=== PATIENT | male | born 1940 | race Caucasian/White ===

== ENCOUNTER 2019-01-24 19:01 | Inpatient (IN) | payer OTHER, MEDICARE ==
[2019-01-24] MEDS ORDERED: NORMAL SALINE 1000 ML 1,000 ML IV ONE (21:22)
--- NOTE | 2019-01-24 21:24 | ER Document Report ---
ED General - General Chief Complaint: Dizziness Stated Complaint: DIZZINESS Time Seen by Provider: 01/24/19 20:36 Notes: 78-year-old male to emergency department for evaluation of altered mental status. Patient has baseline dementia. Multiple other medical problems. states that seems more confused today. Looks like he was having a seizure and shaking earlier today. No trauma. - HPI Onset: Just prior to arrival Severity: Moderate Pain Level: Denies Associated symptoms: Fever - Related Data Allergies/Adverse Reactions: No Known Allergies Allergy (Unverified 01/24/19 19:38) Past Medical History - General Information source: Relative Cannot obtain history due to: Dementia - Social History Smoking Status: Never Smoker Chew tobacco use (# tins/day): Yes Frequency of alcohol use: None Drug Abuse: None Lives with: Spouse/Significant other Family History: Reviewed & Not Pertinent - Medical History Notes: Dementia, diabetes Review of Systems - Review of Systems -: Yes ROS unobtainable due to patient's medical condition Physical Exam - Vital signs Vitals: Resp Pulse Ox 21 H 94 01/24/19 19:32 01/24/19 19:32 Interpretation: Febrile - General General appearance: Appears well, Alert - HEENT Head: Normocephalic, Atraumatic Eyes: Normal Pupils: PERRL Mucous membranes: Dry - Respiratory Respiratory status: No respiratory distress Chest status: Nontender Breath sounds: Normal Chest palpation: Normal - Cardiovascular Rhythm: Regular Heart sounds: Normal auscultation Murmur: No - Abdominal Inspection: Normal Distension: No distension Bowel sounds: Normal Tenderness: Nontender Organomegaly: No organomegaly - Back Back: Normal, Nontender - Extremities General upper extremity: Normal inspection, Nontender, Normal color, Normal ROM, Normal temperature General lower extremity: Normal inspection, Nontender, Normal color, Normal ROM, Normal temperature, Other - Right lower extremity demonstrates some anasarca with some chronic venous stasis. Right lower extremity with pitting edema and left lower extremity with pitting edema.. No: Alexei's sign - Neurological Neuro grossly intact: Yes Cognition: Confused, Short term memory loss Plessis Coma Scale Eye Opening: Spontaneous Lidia Coma Scale Verbal: Confused Lidia Coma Scale Motor: Obeys Commands Plessis Coma Scale Total: 14 Speech: Normal Motor strength normal: LUE, RUE, LLE, RLE Sensory: Normal - Psychological Associated symptoms: Normal affect, Normal mood - Skin Skin Temperature: Warm Skin Moisture: Dry Skin Color: Normal Course - Re-evaluation Re-evalutation: 01/25/19 02:29 Patient with a fever. states that he may also have some abdominal pain? We will do basic workup at this time. If no significant pathology is seen may actually entertain doing an LP at this time. 01/25/19 04:32 LP performed. Antibiotics started. Opening pressure was high. Hospitalist has been consulted. Admitting at this time. - Vital Signs Vital signs: Temp Pulse Resp BP Pulse Ox 99.9 F 82 26 H 116/63 91 L 01/25/19 03:02 01/24/19 19:37 01/25/19 00:31 01/25/19 00:31 01/25/19 00:31 - Laboratory Result Diagrams: 01/24/19 21:40 01/24/19 21:40 Laboratory results interpreted by me: 01/24/19 01/24/19 01/24/19 21:40 21:40 21:40 RBC 3.32 L Hgb 11.6 L Hct 33.5 L MCV 101 H MCH 34.9 H RDW 16.3 H Plt Count 139 L Seg Neutrophils % 84.1 H Lymphocytes % 8.0 L Absolute Neutrophils 8.3 H APTT Sodium 136.6 L Potassium 5.8 H BUN 37 H Glucose 146 H Direct Bilirubin 0.6 H Alkaline Phosphatase 137 H TSH 7.86 H Urine Protein Urine Ketones Urine Urobilinogen 01/24/19 01/25/19 23:24 02:35 RBC Hgb Hct MCV MCH RDW Plt Count Seg Neutrophils % Lymphocytes % Absolute Neutrophils APTT 36.8 H Sodium Potassium BUN Glucose Direct Bilirubin Alkaline Phosphatase TSH Urine Protein 30 H Urine Ketones TRACE H Urine Urobilinogen 2.0 H - EKG Interpretation by Me [place]/QRS: LBBB Procedures - Lumbar Puncture Lumbar puncture Time completed: 04:31 Consent obtained: Yes Lumbar puncture pre-procedure: Sterile PPE donned, Betadine prep applied, Chloraprep applied, Sterile drapes applied Patient position: Sitting Needle size: 22 Lumbar puncture location: l3-l4 Anesthetic type: 1% Lidocaine mL's of anesthetic: 3 Amount/type of drainage: clear Number of attempts: 2 Complications: No Notes: 01/25/19 04:32 Opening pressure 47 Critical Care Note - Critical Care Note Total time excluding time spent on procedures (mins): 45 Comments: Fever, altered mental status, hypotension Discharge - Discharge Clinical Impression: Hyperkalemia, Anasarca Altered mental status, unspecified Qualifiers: Altered mental status type: unspecified Qualified Code(s): R41.82 - Altered mental status, unspecified Condition: Fair Disposition: ADMITTED INPATIENT Admitting Provider: [place] [facility] Unit Admitted: [facility]
[2019-01-24] MEDS ORDERED: ACETAMINOPHEN 325 MG TABLET PO ONE (21:30)
[2019-01-24 21:55] LABS: ABSOLUTE LYMPHOCYTES (AUTO) 0.8 10^3/uL (0.5-4.7); ABSOLUTE MONOCYTES (AUTO) 0.7 10^3/uL (0.1-1.4); ABSOLUTE NEUT (AUTO) 8.3 10^3/uL (1.7-8.2); BASOPHILS % (AUTO) 0.3 % (0-2); EOSINOPHILS % (AUTO) 0.4 % (0-6); HEMATOCRIT 33.5 % (37.9-51.0); HEMOGLOBIN 11.6 g/dL (13.5-17.0); MEAN CORPUSCULAR HEMOGLOBIN 34.9 pg (27.0-33.4); MEAN CORPUSCULAR HGB CONC 34.5 g/dL (32.0-36.0); MEAN CORPUSCULAR VOLUME 101 fl (80-97); MONOCYTES % (AUTO) 7.2 % (3-13); PLATELET COUNT 139 10^3/uL (150-450); RED BLOOD COUNT 3.32 10^6/uL (4.35-5.55); RED CELL DISTRIBUTION WIDTH 16.3 % (11.5-14.0); SEGMENTED NEUTROPHILS % (AUTO) 84.1 % (42-78); TOTAL CELLS COUNTED % (AUTO) 100 %; WHITE BLOOD COUNT 9.8 10^3/uL (4.0-10.5)
--- NOTE | 2019-01-24 22:01 | RADIOLOGY REPORT (SQ) ---
EXAM DESCRIPTION: XR CHEST 1 VIEW COMPLETED DATE/TME: 01/24/2019 21:21 CLINICAL HISTORY: 78 years, Male, sob Findings: The heart is mildly enlarged. Status post median sternotomy. Lungs are clear. No pleural effusion. IMPRESSION: No acute disease.
[2019-01-24 22:16] LABS: ALANINE AMINOTRANSFERASE 22 U/L (21-72); ALBUMIN 4.7 g/dL (3.5-5.0); ALKALINE PHOSPHATASE 137 U/L (38-126); ANION GAP 13 (5-19); ASPARTATE AMINO TRANSFERASE 40 U/L (17-59); BILIRUBIN,DIRECT 0.6 mg/dL (0.0-0.4); BILIRUBIN,TOTAL 1.3 mg/dL (0.2-1.3); BLOOD UREA NITROGEN 37 mg/dL (7-20); CALCIUM 9.9 mg/dL (8.4-10.2); CARBON DIOXIDE 25 mmol/L (22-30); CHLORIDE 99 mmol/L (98-107); GLUCOSE 146 mg/dL (75-110); POTASSIUM 5.8 mmol/L (3.6-5.0); SODIUM 136.6 mmol/L (137-145); TOTAL PROTEIN 8.1 g/dL (6.3-8.2)
[2019-01-24 23:35] LABS: APPEARANCE,URINE SLIGHTLY-CLOUDY; BILIRUBIN,URINE NEGATIVE (NEGATIVE); COLOR,URINE YELLOW; GLUCOSE, URINE NEGATIVE (NEGATIVE); KETONES,URINE TRACE mg/dL (NEGATIVE); LEUKOCYTE ESTERASE,URINE NEGATIVE (NEGATIVE); NITRITE,URINE NEGATIVE (NEGATIVE); PROTEIN,URINE 30 mg/dL (NEGATIVE); URINE SPECIFIC GRAVITY 1.017
[2019-01-24 23:56] LABS: A TYPE INFLUENZA AG NEGATIVE (NEGATIVE); B INFLUENZA AG NEGATIVE (NEGATIVE)
--- NOTE | 2019-01-25 02:12 | RADIOLOGY REPORT (SQ) ---
CLINICAL HISTORY: altered COMPARISON: None. TECHNIQUE: CT HEAD WITHOUT IV CONTRAST on 01/25/2019 12:26 AM CDT This exam was performed according to our departmental dose-optimization program, which includes automated exposure control, adjustment of the mA and/or kV according to patient size and/or use of iterative reconstruction technique. FINDINGS: There is no acute hemorrhage, mass effect or midline shift. Jarrett-white differentiation is preserved. There is no hydrocephalus. There is no significant volume loss for age. There are mild patchy hypodensities within the periventricular and subcortical white matter, consistent with microangiopathic ischemic changes. The calvarium is intact. Orbits and globes are unremarkable. The paranasal sinuses are clear. Mastoid air cells are clear. IMPRESSION: No acute intracranial findings.
--- NOTE | 2019-01-25 02:18 | RADIOLOGY REPORT (SQ) ---
CLINICAL HISTORY: fever, abd pain COMPARISON: None. TECHNIQUE: CT ABDOMEN PELVIS WITH IV CONTRAST on 01/25/2019 12:26 AM CDT This exam was performed according to our departmental dose-optimization program, which includes automated exposure control, adjustment of the mA and/or kV according to patient size and/or use of iterative reconstruction technique. FINDINGS: There is a trace left and a moderate right pleural effusion. Abdomen: There is mild perihepatic ascites. There is no biliary dilatation. Gallbladder is decompressed containing several gallstones. The pancreas and spleen are normal in appearance. The adrenal glands and kidneys are unremarkable. Abdominal aorta is normal in course and caliber without aneurysm. There is no free air. There is no retroperitoneal adenopathy. Pelvis: There is no bowel obstruction. Urinary bladder is unremarkable. There is small amount of free pelvic fluid. Appendix is normal. There is minimal body wall anasarca. Skeleton: There are no acute osseous findings. No suspicious bony lesions. IMPRESSION: Fluid overloaded state with pleural effusions, mild ascites as well as mild body wall anasarca.
[2019-01-25] MEDS ORDERED: CEFTRIAXONE INJ 1000 MG VIAL IV ONE (02:27)
[2019-01-25 02:52] LABS: INTERNATIONAL RATION (INR) 1.13; PROTHROMBIN TIME 15.1 SEC (11.4-15.4)
[2019-01-25 02:53] LABS: PARTIAL THROMBOPLASTIN TIME 36.8 SEC (23.5-35.8)
[2019-01-25] MEDS ORDERED: MAG HYDROX/AL HYDROX/SIMETH SUSP 30 ML UDCUP PO PRN (03:04)
[2019-01-25] MEDS ORDERED: MAGNESIUM HYDROXIDE SUSP 30 ML UDCUP PO PRN (03:04)
[2019-01-25] MEDS ORDERED: LACTULOSE SYRUP 20 GM/30 ML UDCUP PO ONE (03:04)
[2019-01-25] MEDS ORDERED: IPRATROPIUM/ALBUTEROL 0.5-2.5 MG/3 ML AMPUL NEB PRN (03:04)
[2019-01-25] MEDS ORDERED: HYDRALAZINE HCL INJ/PF 20 MG/1 ML SDV IV PRN (03:04)
[2019-01-25] MEDS ORDERED: ACETAMINOPHEN 325 MG TABLET PO PRN (03:04)
[2019-01-25] MEDS ORDERED: DEXTROSE 50%-WATER 25 GM/50 ML DISP.SYRIN IV PRN ×2 (03:04)
[2019-01-25] MEDS ORDERED: GLUCAGON,HUMAN RECOMB 1 MG INJ IM PRN (03:04)
[2019-01-25] MEDS ORDERED: DEXTROSE 40% GEL 15 GM TUBE PO PRN ×2 (03:04)
[2019-01-25 04:05] LABS: FREE T4 (FREE THYROXINE) 1.42 ng/dL (0.78-2.19)
[2019-01-25 04:18] LABS: THYROID STIMULATING HORMONE 7.86 uIU/mL (0.47-4.68)
[2019-01-25] MEDS ORDERED: VANCOMYCIN HCL 1,500 MG in DEXTROSE 5%-WATER 250 ML IV ONE (04:33)
[2019-01-25] MEDS ORDERED: NORMAL SALINE 1000 ML 1,000 ML IV ONE (04:34)
[2019-01-25] MEDS ORDERED: VANCOMYCIN HCL INJ 1000 MG VIAL IV PRN (04:36)
[2019-01-25] MEDS ORDERED: THIAMINE HCL INJ 200 MG/2 ML VIAL IV PRN (04:40)
[2019-01-25] MEDS ORDERED: FOLIC ACID INJ 5 MG/1 ML 10 ML VIAL IV PRN (04:41)
[2019-01-25] MEDS ORDERED: THIAMINE HCL 100 MG, FOLIC ACID 1 MG in NORMAL SALINE 250 ML IV ONE (04:45)
[2019-01-25] MEDS ORDERED: VANCOMYCIN HCL 0 MG in DEXTROSE 5%-WATER 250 ML IV NR (04:45)
[2019-01-25] MEDS ORDERED: NOREPINEPHRINE BITARTRATE INJ/PF 4 MG/4 ML SDV IV ONE (05:06)
[2019-01-25] MEDS: DEXTROSE 5%-WATER 250 ML with NOREPINEPHRINE BITARTRATE 4 MG IV PRN ×4 (05:12→10:28)
[2019-01-25 05:27] LABS: COLOR ALL TUBES COLORLESS; CSF TUBE NUMBER 1
[2019-01-25 05:28] LABS: APPEARANCE ALL TUBES CLEAR; COLOR ALL TUBES COLORLESS; CSF TOTAL VOLUME 10.5 CC; CSF TUBE NUMBER 4; RED BLOOD CELL,CSF 0 /uL (0-10); VOLUME TUBE 1 2.5 CC; WHITE BLOOD CELL,CSF 3 /uL (0-5)
[2019-01-25 05:29] LABS: GLUCOSE,CSF 77 mg/dL (40-70); PROTEIN,CSF 78 mg/dL (12-60); WHITE BLOOD CELL,CSF 1 /uL (0-5)
[2019-01-25] MEDS ORDERED: ACETAMINOPHEN 650 MG SUPP.RECT PR PRN (05:35)
[2019-01-25] MEDS ORDERED: DEXAMETHASONE SOD PHOS INJ 10 MG/1 ML VIAL ONE (05:40)
[2019-01-25] MEDS ORDERED: ACETAMINOPHEN 650 MG SUPP.RECT PR ONE (05:40)
[2019-01-25] MEDS: DEXAMETHASONE SOD PHOS INJ 10 MG/1 ML VIAL IV SCH ×3 (05:44→21:09)
[2019-01-25 06:01] LABS: ABSOLUTE RETICS # 0.052 10^6/uL (0.028-0.122); HEMATOCRIT 34.4 % (37.9-51.0); HEMOGLOBIN 11.8 g/dL (13.5-17.0); MEAN CORPUSCULAR HEMOGLOBIN 34.5 pg (27.0-33.4); MEAN CORPUSCULAR HGB CONC 34.1 g/dL (32.0-36.0); MEAN CORPUSCULAR VOLUME 101 fl (80-97); PLATELET COUNT 129 10^3/uL (150-450); RED BLOOD COUNT 3.41 10^6/uL (4.35-5.55); RED CELL DISTRIBUTION WIDTH 16.2 % (11.5-14.0); RETICULOCYTE COUNT (AUTO) 1.51 % (0.66-2.85); WHITE BLOOD COUNT 16.9 10^3/uL (4.0-10.5)
[2019-01-25 06:17] LABS: IRON(TIBC) 166.1 ug/dL (49-181)
[2019-01-25 06:19] LABS: ALANINE AMINOTRANSFERASE 19 U/L (21-72); ALBUMIN 4.1 g/dL (3.5-5.0); ALKALINE PHOSPHATASE 132 U/L (38-126); ANION GAP 14 (5-19); ASPARTATE AMINO TRANSFERASE 35 U/L (17-59); BILIRUBIN,DIRECT 0.5 mg/dL (0.0-0.4); BILIRUBIN,TOTAL 1.3 mg/dL (0.2-1.3); BLOOD UREA NITROGEN 39 mg/dL (7-20); CALCIUM 9.3 mg/dL (8.4-10.2); CARBON DIOXIDE 22 mmol/L (22-30); CHLORIDE 102 mmol/L (98-107); GLUCOSE 109 mg/dL (75-110); SODIUM 137.5 mmol/L (137-145); TOTAL PROTEIN 7.4 g/dL (6.3-8.2)
--- NOTE | 2019-01-25 06:19 | PDOC H&P ---
History of Present Illness Admission Date/PCP: 01/25/19 03:34 [facility] Patient complains of: Altered mental status History of Present Illness: BELINDA BRITO is a 78 year old male with an extensive past medical history of COPD, congestive heart failure, coronary artery disease status post remote bypass grafting, hypertension and advanced dementia who requires assistance with feeding at baseline. He presents with his after the abrupt onset of vomiting of gastric contents x1, fever with altered mental status from baseline. Patient has chronic cellulitis of the right leg without antibiotics there are no new medications initiated patient is otherwise felt well in the emergency room is found to have septic shock with hypotension, fever, hyperkalemia chest x-ray revealing bilateral pleural effusion without infiltrate, LP reveals increased opening pressure, right leg is hot and erythemic with several open excoriations without exudate. He started on vancomycin, Rocephin and referred to the hospitalist for admission. denies recent rash or tick bite Patient verifies CODE STATUS is full code Past Medical History Cardiac Medical History: Reports: Congestive Heart Failure, Coronary Artery Disease Pulmonary Medical History: Reports: Bronchitis, Chronic Obstructive Pulmonary Disease (COPD) Neurological Medical History: Reports: Other - Dementia Endocrine Medical History: Reports: None Renal/ Medical History: Reports: None Malignancy Medical History: Reports: None Past Surgical History Past Surgical History: Reports: Coronary Artery Bypass Graft, Valve Replacement Social History Information Source: Patient Lives with: Spouse/Significant other Smoking Status: Never Smoker Frequency of Alcohol Use: Occasional Drugs: None, Other - Chewing tobacco - Advance Directive Resuscitation Status: Full Code Family History Family History: DM, Hypertension Parental Family History Reviewed: Yes Children Family History Reviewed: Yes Sibling(s) Family History Reviewed.: Yes Medication/Allergy Allergies/Adverse Reactions: No Known Allergies Allergy (Unverified 01/24/19 19:38) Physical Exam Vital Signs: Temp Pulse Resp BP Pulse Ox 101.2 F H 82 20 76/36 L 95 01/25/19 03:48 01/24/19 19:37 01/25/19 05:48 01/25/19 05:48 01/25/19 05:48 Intake & Output 01/23/19 01/24/19 01/25/19 11:59 11:59 11:59 Intake Total 1999 Balance 1999 Weight 95.254 kg General appearance: PRESENT: disheveled, severe distress, thin, well-developed. ABSENT: cooperative Head exam: PRESENT: atraumatic, normocephalic Eye exam: PRESENT: conjunctiva pink, EOMI, PERRLA. ABSENT: scleral icterus Ear exam: PRESENT: normal external ear exam Mouth exam: PRESENT: dry mucosa, tongue midline. ABSENT: moist Neck exam: ABSENT: carotid bruit, JVD, lymphadenopathy, tenderness, thyromegaly Respiratory exam: PRESENT: crackles, decreased breath sounds, tachypnea. ABSENT: rales, rhonchi, wheezes Cardiovascular exam: PRESENT: RRR, +S1, +S2, systolic murmur. ABSENT: diastolic murmur, rubs Pulses: PRESENT: normal dorsalis pedis pul Vascular exam: PRESENT: normal capillary refill GI/Abdominal exam: PRESENT: normal bowel sounds, soft. ABSENT: distended, guarding, mass, organolmegaly, rebound, tenderness Rectal exam: PRESENT: deferred Extremities exam: PRESENT: tenderness - Hot right lower leg circumferentially erythemic with several open areas without exudate, +1 edema Neurological exam: PRESENT: altered, CN II-XII grossly intact. ABSENT: oriented to person, oriented to place, oriented to time, oriented to situation Psychiatric exam: PRESENT: unusual affect Skin exam: PRESENT: erythema, other - Hot right lower leg circumferentially erythemic with several open areas without exudate. ABSENT: cyanosis, intact, jaundice Results Laboratory Results: 01/24/19 01/24/19 01/24/19 21:40 21:40 21:40 WBC 9.8 RBC 3.32 L Hgb 11.6 L Hct 33.5 L MCV 101 H MCH 34.9 H MCHC 34.5 RDW 16.3 H Plt Count 139 L Seg Neutrophils % 84.1 H Lymphocytes % 8.0 L Monocytes % 7.2 Eosinophils % 0.4 Basophils % 0.3 Absolute Neutrophils 8.3 H Absolute Lymphocytes 0.8 Absolute Monocytes 0.7 Absolute Eosinophils 0.0 Absolute Basophils 0.0 Retic Count (auto) Absolute Retic Sodium 136.6 L Potassium 5.8 H Chloride 99 Carbon Dioxide 25 Anion Gap 13 BUN 37 H Creatinine 1.09 Est GFR ( Amer) > 60 Est GFR (Non-Af Amer) > 60 Glucose 146 H Lactic Acid 1.3 Calcium 9.9 Total Bilirubin 1.3 AST 40 ALT 22 Alkaline Phosphatase 137 H Total Protein 8.1 Albumin 4.7 Lipase TSH Free T4 Urine Color Urine Appearance Urine pH Ur Specific [place] Urine Protein Urine Glucose (UA) Urine Ketones Urine Blood Urine Nitrite Ur Leukocyte Esterase Urine WBC (Auto) Urine RBC (Auto) Fluid Tube Number CSF Volume CSF Appearance CSF Color CSF WBC CSF RBC CSF Glucose CSF Total Protein 01/24/19 01/24/19 01/24/19 21:40 21:40 23:24 WBC RBC Hgb Hct MCV MCH MCHC RDW Plt Count Seg Neutrophils % Lymphocytes % Monocytes % Eosinophils % Basophils % Absolute Neutrophils Absolute Lymphocytes Absolute Monocytes Absolute Eosinophils Absolute Basophils Retic Count (auto) Absolute Retic Sodium Potassium Chloride Carbon Dioxide Anion Gap BUN Creatinine Est GFR ( Amer) Est GFR (Non-Af Amer) Glucose Lactic Acid Calcium Total Bilirubin AST ALT Alkaline Phosphatase Total Protein Albumin Lipase 110.5 TSH 7.86 H Free T4 1.42 Urine Color YELLOW Urine Appearance SLIGHTLY-CLOUDY Urine pH 6.0 Ur Specific [place] 1.017 Urine Protein 30 H Urine Glucose (UA) NEGATIVE Urine Ketones TRACE H Urine Blood NEGATIVE Urine Nitrite NEGATIVE Ur Leukocyte Esterase NEGATIVE Urine WBC (Auto) 1 Urine RBC (Auto) 0 Fluid Tube Number CSF Volume CSF Appearance CSF Color CSF WBC CSF RBC CSF Glucose CSF Total Protein 01/25/19 01/25/19 01/25/19 04:25 04:25 04:25 WBC RBC Hgb Hct MCV MCH MCHC RDW Plt Count Seg Neutrophils % Lymphocytes % Monocytes % Eosinophils % Basophils % Absolute Neutrophils Absolute Lymphocytes Absolute Monocytes Absolute Eosinophils Absolute Basophils Retic Count (auto) Absolute Retic Sodium Potassium Chloride Carbon Dioxide Anion Gap BUN Creatinine Est GFR ( Amer) Est GFR (Non-Af Amer) Glucose Lactic Acid Calcium Total Bilirubin AST ALT Alkaline Phosphatase Total Protein Albumin Lipase TSH Free T4 Urine Color Urine Appearance Urine pH Ur Specific [place] Urine Protein Urine Glucose (UA) Urine Ketones Urine Blood Urine Nitrite Ur Leukocyte Esterase Urine WBC (Auto) Urine RBC (Auto) Fluid Tube Number 1 4 CSF Volume 10.5 10.5 CSF Appearance CLEAR CLEAR CSF Color COLORLESS COLORLESS CSF WBC 3 1 CSF RBC 0 0 CSF Glucose 77 H CSF Total Protein 78 H 01/25/19 01/25/19 05:45 05:45 WBC RBC Hgb Hct MCV MCH MCHC RDW Plt Count Seg Neutrophils % Not Reportable Lymphocytes % Not Reportable Monocytes % Not Reportable Eosinophils % Not Reportable Basophils % Not Reportable Absolute Neutrophils Not Reportable Absolute Lymphocytes Not Reportable Absolute Monocytes Not Reportable Absolute Eosinophils Not Reportable Absolute Basophils Not Reportable Retic Count (auto) Cancelled Absolute Retic Cancelled Sodium Potassium Chloride Carbon Dioxide Anion Gap BUN Creatinine Est GFR ( Amer) Est GFR (Non-Af Amer) Glucose Lactic Acid Calcium Total Bilirubin AST ALT Alkaline Phosphatase Total Protein Albumin Lipase TSH Free T4 Urine Color Urine Appearance Urine pH Ur Specific [place] Urine Protein Urine Glucose (UA) Urine Ketones Urine Blood Urine Nitrite Ur Leukocyte Esterase Urine WBC (Auto) Urine RBC (Auto) Fluid Tube Number CSF Volume CSF Appearance CSF Color CSF WBC CSF RBC CSF Glucose CSF Total Protein 01/24/19 01/24/19 01/24/19 21:40 21:40 21:40 Creatine Kinase 60 CK-MB (CK-2) 0.60 Troponin I < 0.012 Impressions: Chest X-Ray 01/24/19 21:21 IMPRESSION: No acute disease. Abdomen/Pelvis CT 01/25/19 00:26 IMPRESSION: Fluid overloaded state with pleural effusions, mild ascites as well as mild body wall anasarca. Head CT 01/25/19 00:26 IMPRESSION: No acute intracranial findings. Assessment & Plan - Diagnosis (1) Meningitis Is this a current diagnosis for this admission?: Yes Plan: Possible meningitis with increased opening pressure, dexamethasone, vancomycin, Rocephin initiated, follow-up CSF studies and blood culture (2) Cellulitis of right leg Is this a current diagnosis for this admission?: Yes Plan: Obvious right lower leg cellulitis without exudate, likely strep. Rocephin and vancomycin initiated, follow-up blood culture and CBC (3) Pleural effusion Is this a current diagnosis for this admission?: Yes Plan: Unclear if infectious source, no infiltrate, BiPAP support as needed, consider repeat chest x-ray (4) Severe sepsis Is this a current diagnosis for this admission?: Yes Plan: Likely secondary to #1 or 2. IV fluid challenge, Levophed as needed (5) Altered mental status, unspecified Qualifiers: Altered mental status type: unspecified Qualified Code(s): R41.82 - Altered mental status, unspecified Is this a current diagnosis for this admission?: Yes Plan: Delirium of acute illness complicated by baseline dementia requiring assistance with ADLs (6) Hyperkalemia Is this a current diagnosis for this admission?: Yes Plan: Lactulose, follow-up chemistry, no peaked T waves - Time Time Spent: 50 to 70 Minutes - Inpatient Certification Medical Necessity: Need Close Monitoring Due to Risk of Patient Decompensation
[2019-01-25 06:22] LABS: ABSOLUTE LYMPHOCYTES# (MANUAL) 0.3 10^3/uL (0.5-4.7); ABSOLUTE MONOCYTES # (MANUAL) 1.2 10^3/uL (0.1-1.4); ABSOLUTE NEUTROPHILS# (MANUAL) 15.4 10^3/uL (1.7-8.2); ANISOCYTOSIS 1+; BAND NEUTROPHILS % (MANUAL) 3 % (3-5); BASOPHILS % (MANUAL) 0 % (0-2); EOSINOPHILS % (MANUAL) 0 % (0-6); LYMPHOCYTES % (MANUAL) 2 % (13-45); MONOCYTES % (MANUAL) 7 % (3-13); PLATELET COMMENT DECREASED; SEGMENTED NEUTROPHILS % (MAN) 88 % (42-78); TOTAL CELLS COUNTED 100; TOXIC VACUOLATION PRESENT
[2019-01-25 06:33] LABS: POTASSIUM 4.7 mmol/L (3.6-5.0)
[2019-01-25] MEDS: NORMAL SALINE 1000 ML 1,000 ML IV PRN ×3 (06:36→11:04)
[2019-01-25] MEDS: HEPARIN SOD (PORCINE) 5,000 UNIT/ML 1 ML SYRINGE SUBCUT SCH ×3 (07:03→21:09)
[2019-01-25] MEDS: INSULIN LISPRO 100 UNIT/ML 3 ML VIAL SUBCUT SCH ×3 (07:04→17:43)
[2019-01-25 07:24] LABS: FOLATE 7.44 ng/mL (>2.76)
[2019-01-25 07:33] LABS: URINE AMPHETAMINES SCREEN NEGATIVE; URINE BARBITURATES SCREEN NEGATIVE; URINE BENZODIAZEPINES SCREEN NEGATIVE; URINE COCAINE SCREEN NEGATIVE; URINE MARIJUANA (THC) SCREEN NEGATIVE; URINE METHADONE SCREEN NEGATIVE; URINE PHENCYCLIDINE SCREEN NEGATIVE
--- NOTE | 2019-01-25 07:56 | EKG REPORT ---
SEVERITY:- ABNORMAL ECG - SINUS RHYTHM LEFT BUNDLE BRANCH BLOCK : Confirmed by: Veto Taylor MD 25-Jan-2019 07:55:52
[2019-01-25] MEDS: IPRATROPIUM/ALBUTEROL 0.5-2.5 MG/3 ML AMPUL NEB SCH ×3 (08:45→23:51)
[2019-01-25] MEDS: DEXTROSE 5%-WATER 250 ML with PHENYLEPHRINE HCL 40 MG IV PRN ×6 (09:13→22:47)
[2019-01-25] MEDS ORDERED: DEXTROSE 5%-WATER 250 ML with NOREPINEPHRINE BITARTRATE 4 MG IV PRN ×2 (11:53)
[2019-01-25] MEDS: CYANOCOBALAMIN (VITAMIN B-12) INJ 1000 MCG/1 ML VIAL IM SCH (11:56)
--- NOTE | 2019-01-25 14:40 | PDOC PROGRESS REPORT ---
Subjective Progress Note for:: 01/25/19 Subjective:: 78 year old male with an extensive past medical history of COPD, congestive heart failure, coronary artery disease status post remote bypass grafting, hypertension and advanced dementia who requires assistance with feeding at baseline. He presents with his after the abrupt onset of vomiting of gastric contents x1, fever with altered mental status from baseline. Patient has chronic cellulitis of the right leg without antibiotics there are no new medications initiated patient is otherwise felt well in the emergency room is found to have septic shock with hypotension, fever, hyperkalemia chest x-ray revealing bilateral pleural effusion without infiltrate, LP reveals increased opening pressure, right leg is hot and erythemic with several open excoriations without exudate. He started on vancomycin, Rocephin and referred to the hospitalist for admission. denies recent rash or tick bite Patient verifies CODE STATUS is full code 01/25/2019-pt is comfortably in bed communicating well not in disress.still hypotensive on neonynephrine.denies any problems. Reason For Visit: ACUTE ENCEPHALOPATHY, DEMENTIA, FEVER, HYPERKALEMI Physical Exam Vital Signs: Temp Pulse Resp BP Pulse Ox 99.1 F 72 19 102/65 100 01/25/19 14:01 01/25/19 14:00 01/25/19 14:01 01/25/19 14:01 01/25/19 14:01 Intake & Output 01/24/19 01/25/19 01/26/19 06:59 06:59 06:59 Intake Total 1999 3535 Output Total 25 Balance 1999 3510 Weight 95.254 kg 96.8 kg General appearance: PRESENT: no acute distress Head exam: PRESENT: atraumatic Eye exam: PRESENT: PERRLA Ear exam: PRESENT: normal external ear exam Neck exam: ABSENT: carotid bruit, JVD, lymphadenopathy, thyromegaly Respiratory exam: PRESENT: decreased breath sounds Cardiovascular exam: PRESENT: tachycardia GI/Abdominal exam: PRESENT: ascites, normal bowel sounds. ABSENT: tenderness Extremities exam: PRESENT: +1 edema Neurological exam: PRESENT: alert, awake, oriented to person, oriented to place, oriented to time, oriented to situation, CN II-XII grossly intact. ABSENT: motor sensory deficit Psychiatric exam: PRESENT: appropriate affect, normal mood. ABSENT: homicidal ideation, suicidal ideation Skin exam: PRESENT: erythema, other - Erythema present on both legs lower extremities looks like cellulitis Results Laboratory Results: 01/25/19 05:45 01/25/19 05:45 01/24/19 01/24/19 01/24/19 21:40 21:40 21:40 WBC 9.8 RBC 3.32 L Hgb 11.6 L Hct 33.5 L MCV 101 H MCH 34.9 H MCHC 34.5 RDW 16.3 H Plt Count 139 L Seg Neutrophils % 84.1 H Lymphocytes % 8.0 L Monocytes % 7.2 Eosinophils % 0.4 Basophils % 0.3 Absolute Neutrophils 8.3 H Absolute Lymphocytes 0.8 Absolute Monocytes 0.7 Absolute Eosinophils 0.0 Absolute Basophils 0.0 Retic Count (auto) Absolute Retic Sodium 136.6 L Potassium 5.8 H Chloride 99 Carbon Dioxide 25 Anion Gap 13 BUN 37 H Creatinine 1.09 Est GFR ( Amer) > 60 Est GFR (Non-Af Amer) > 60 Glucose 146 H Lactic Acid 1.3 Calcium 9.9 Iron TIBC % Saturation Ferritin Total Bilirubin 1.3 AST 40 ALT 22 Alkaline Phosphatase 137 H Total Protein 8.1 Albumin 4.7 Lipase Vitamin B12 Folate TSH Free T4 Urine Color Urine Appearance Urine pH Ur Specific [place] Urine Protein Urine Glucose (UA) Urine Ketones Urine Blood Urine Nitrite Ur Leukocyte Esterase Urine WBC (Auto) Urine RBC (Auto) Fluid Tube Number CSF Volume CSF Appearance CSF Color CSF WBC CSF RBC CSF Glucose CSF Total Protein 01/24/19 01/24/19 01/24/19 21:40 21:40 23:24 WBC RBC Hgb Hct MCV MCH MCHC RDW Plt Count Seg Neutrophils % Lymphocytes % Monocytes % Eosinophils % Basophils % Absolute Neutrophils Absolute Lymphocytes Absolute Monocytes Absolute Eosinophils Absolute Basophils Retic Count (auto) Absolute Retic Sodium Potassium Chloride Carbon Dioxide Anion Gap BUN Creatinine Est GFR ( Amer) Est GFR (Non-Af Amer) Glucose Lactic Acid Calcium Iron TIBC % Saturation Ferritin Total Bilirubin AST ALT Alkaline Phosphatase Total Protein Albumin Lipase 110.5 Vitamin B12 Folate TSH 7.86 H Free T4 1.42 Urine Color YELLOW Urine Appearance SLIGHTLY-CLOUDY Urine pH 6.0 Ur Specific [place] 1.017 Urine Protein 30 H Urine Glucose (UA) NEGATIVE Urine Ketones TRACE H Urine Blood NEGATIVE Urine Nitrite NEGATIVE Ur Leukocyte Esterase NEGATIVE Urine WBC (Auto) 1 Urine RBC (Auto) 0 Fluid Tube Number CSF Volume CSF Appearance CSF Color CSF WBC CSF RBC CSF Glucose CSF Total Protein 01/25/19 01/25/19 01/25/19 04:25 04:25 04:25 WBC RBC Hgb Hct MCV MCH MCHC RDW Plt Count Seg Neutrophils % Lymphocytes % Monocytes % Eosinophils % Basophils % Absolute Neutrophils Absolute Lymphocytes Absolute Monocytes Absolute Eosinophils Absolute Basophils Retic Count (auto) Absolute Retic Sodium Potassium Chloride Carbon Dioxide Anion Gap BUN Creatinine Est GFR ( Amer) Est GFR (Non-Af Amer) Glucose Lactic Acid Calcium Iron TIBC % Saturation Ferritin Total Bilirubin AST ALT Alkaline Phosphatase Total Protein Albumin Lipase Vitamin B12 Folate TSH Free T4 Urine Color Urine Appearance Urine pH Ur Specific [place] Urine Protein Urine Glucose (UA) Urine Ketones Urine Blood Urine Nitrite Ur Leukocyte Esterase Urine WBC (Auto) Urine RBC (Auto) Fluid Tube Number 1 4 CSF Volume 10.5 10.5 CSF Appearance CLEAR CLEAR CSF Color COLORLESS COLORLESS CSF WBC 3 1 CSF RBC 0 0 CSF Glucose 77 H CSF Total Protein 78 H 01/25/19 01/25/19 01/25/19 05:45 05:45 05:45 WBC 16.9 H RBC 3.41 L Hgb 11.8 L Hct 34.4 L MCV 101 H MCH 34.5 H MCHC 34.1 RDW 16.2 H Plt Count 129 L Seg Neutrophils % Not Reportable Lymphocytes % Not Reportable Monocytes % Not Reportable Eosinophils % Not Reportable Basophils % Not Reportable Absolute Neutrophils Not Reportable Absolute Lymphocytes Not Reportable Absolute Monocytes Not Reportable Absolute Eosinophils Not Reportable Absolute Basophils Not Reportable Retic Count (auto) 1.51 Cancelled Absolute Retic 0.052 Cancelled Sodium 137.5 Potassium 4.7 D Chloride 102 Carbon Dioxide 22 Anion Gap 14 BUN 39 H Creatinine 1.74 H Est GFR ( Amer) 46 L Est GFR (Non-Af Amer) 38 L Glucose 109 Lactic Acid Calcium 9.3 Iron TIBC % Saturation Ferritin Total Bilirubin 1.3 AST 35 ALT 19 L Alkaline Phosphatase 132 H Total Protein 7.4 Albumin 4.1 Lipase Vitamin B12 Folate TSH Free T4 Urine Color Urine Appearance Urine pH Ur Specific [place] Urine Protein Urine Glucose (UA) Urine Ketones Urine Blood Urine Nitrite Ur Leukocyte Esterase Urine WBC (Auto) Urine RBC (Auto) Fluid Tube Number CSF Volume CSF Appearance CSF Color CSF WBC CSF RBC CSF Glucose CSF Total Protein 01/25/19 05:45 WBC RBC Hgb Hct MCV MCH MCHC RDW Plt Count Seg Neutrophils % Lymphocytes % Monocytes % Eosinophils % Basophils % Absolute Neutrophils Absolute Lymphocytes Absolute Monocytes Absolute Eosinophils Absolute Basophils Retic Count (auto) Absolute Retic Sodium Potassium Chloride Carbon Dioxide Anion Gap BUN Creatinine Est GFR ( Amer) Est GFR (Non-Af Amer) Glucose Lactic Acid Calcium Iron 166.1 TIBC 457 H % Saturation 36 Ferritin 55.70 Total Bilirubin AST ALT Alkaline Phosphatase Total Protein Albumin Lipase Vitamin B12 972.0 H Folate 7.44 TSH Free T4 Urine Color Urine Appearance Urine pH Ur Specific [place] Urine Protein Urine Glucose (UA) Urine Ketones Urine Blood Urine Nitrite Ur Leukocyte Esterase Urine WBC (Auto) Urine RBC (Auto) Fluid Tube Number CSF Volume CSF Appearance CSF Color CSF WBC CSF RBC CSF Glucose CSF Total Protein 01/24/19 01/24/19 01/24/19 21:40 21:40 21:40 Creatine Kinase 60 CK-MB (CK-2) 0.60 Troponin I < 0.012 Impressions: Chest X-Ray 01/24/19 21:21 IMPRESSION: No acute disease. Abdomen/Pelvis CT 01/25/19 00:26 IMPRESSION: Fluid overloaded state with pleural effusions, mild ascites as well as mild body wall anasarca. Head CT 01/25/19 00:26 IMPRESSION: No acute intracranial findings. Assessment & Plan - Diagnosis (1) Meningitis Is this a current diagnosis for this admission?: Yes Plan: Possible meningitis with increased opening pressure, dexamethasone, vancomycin, Rocephin initiated, follow-up CSF studies and blood culture 01/25/[id number]-txpx-old male admitted for altered mental status LP as part of differential. On p.o. dexamethasone, IV vancomycin IV Rocephin. On examination 10 minutes ago patient is alert awake oriented able to give his date of able to tell me that he was in [facility]. CSF stain negative for bacteria and WBC. Blood cultures are positive for gram-positive cocci in chains. Plan is to continue the present management. (2) Cellulitis of right leg Is this a current diagnosis for this admission?: Yes Plan: 01/25/2019-patient is admitted with right lower leg cellulitis he was started on IV Rocephin and IV vancomycin blood culture positive for gram-positive cocci in chains. Waiting for the sensitivity report. Plan is to continue the present management in the meantime. (3) Pleural effusion Is this a current diagnosis for this admission?: Yes Plan: 01/25/2019-patient was admitted with pleural effusion and a CT scan shows fluid overload with pleural effusions and mild ascites as well as mild body wall anasarca. Because of pleural effusion is unknown. Patient is hypotensive on pressors at this time. Patient is given the history of heavy alcohol use several years ago may be has liver failure with ascites and pleural effusions. (4) Severe sepsis Is this a current diagnosis for this admission?: Yes Plan: Likely secondary to #1 or 2. IV fluid challenge, Levophed as needed 01/25/2019-patient was admitted severe sepsis with acute kidney injury baseline creatinine is 1.09 it was not 1.74. He is on IV pressors. Chest x-ray shows fluid overload with pleural effusions and ascites. Unable to give IV fluids because of the concerns about fluid overload worsening. Lactic acid on admission is 1.3. (5) Hyperkalemia Is this a current diagnosis for this admission?: Yes Plan: 01/25/2019-patient's latest potassium level is 4.7 on admission it is 5.8. Hyperkalemia is resolving. (6) Acute kidney failure Is this a current diagnosis for this admission?: Yes Plan: 01/25/2019-base line 1.08 ,,on admission it is 1.74 due to sepsis, may be due to prerenal causes. Plan is to closely monitor the creatinine levels. - Time Time Spent with patient: 15-24 minutes Medications reviewed and adjusted accordingly: Yes Anticipated discharge: Home
[2019-01-25] MEDS: CEFTRIAXONE 1 GM/D5W RTU 1 GM/50 ML RTUPB IV SCH (17:20)
[2019-01-25] MEDS: FOLIC ACID 1 MG in NORMAL SALINE 250 ML IV SCH (18:40)
[2019-01-25] MEDS ORDERED: THIAMINE HCL 100 MG, FOLIC ACID 1 MG in NORMAL SALINE 250 ML IV SCH (22:00)
[2019-01-26] MEDS: INSULIN LISPRO 100 UNIT/ML 3 ML VIAL SUBCUT SCH ×4 (00:16→18:20)
[2019-01-26 04:33] LABS: HEMATOCRIT 33.4 % (37.9-51.0); HEMOGLOBIN 11.3 g/dL (13.5-17.0); MEAN CORPUSCULAR HEMOGLOBIN 34.5 pg (27.0-33.4); MEAN CORPUSCULAR HGB CONC 33.8 g/dL (32.0-36.0); MEAN CORPUSCULAR VOLUME 102 fl (80-97); PLATELET COUNT 137 10^3/uL (150-450); RED BLOOD COUNT 3.27 10^6/uL (4.35-5.55); RED CELL DISTRIBUTION WIDTH 16.1 % (11.5-14.0); WHITE BLOOD COUNT 19.6 10^3/uL (4.0-10.5)
[2019-01-26 05:00] LABS: ABSOLUTE LYMPHOCYTES# (MANUAL) 0.4 10^3/uL (0.5-4.7); ABSOLUTE MONOCYTES # (MANUAL) 1.6 10^3/uL (0.1-1.4); ABSOLUTE NEUTROPHILS# (MANUAL) 17.6 10^3/uL (1.7-8.2); BASOPHILS % (MANUAL) 0 % (0-2); EOSINOPHILS % (MANUAL) 0 % (0-6); LYMPHOCYTES % (MANUAL) 2 % (13-45); MONOCYTES % (MANUAL) 8 % (3-13); SEGMENTED NEUTROPHILS % (MAN) 90 % (42-78); TOTAL CELLS COUNTED 100
[2019-01-26 05:01] LABS: ANISOCYTOSIS 1+; PLATELET COMMENT ADEQUATE; POLYCHROMASIA 1+
[2019-01-26 05:02] LABS: ALANINE AMINOTRANSFERASE 14 U/L (21-72); ALBUMIN 3.8 g/dL (3.5-5.0); ALKALINE PHOSPHATASE 90 U/L (38-126); ANION GAP 16 (5-19); ASPARTATE AMINO TRANSFERASE 52 U/L (17-59); BILIRUBIN,DIRECT 0.5 mg/dL (0.0-0.4); BILIRUBIN,TOTAL 0.8 mg/dL (0.2-1.3); BLOOD UREA NITROGEN 52 mg/dL (7-20); CALCIUM 8.8 mg/dL (8.4-10.2); CARBON DIOXIDE 17 mmol/L (22-30); CHLORIDE 103 mmol/L (98-107); GLUCOSE 244 mg/dL (75-110); SODIUM 136.2 mmol/L (137-145); TOTAL PROTEIN 6.7 g/dL (6.3-8.2)
[2019-01-26] MEDS: DEXAMETHASONE SOD PHOS INJ 10 MG/1 ML VIAL IV SCH ×3 (05:11→21:14)
[2019-01-26] MEDS: HEPARIN SOD (PORCINE) 5,000 UNIT/ML 1 ML SYRINGE SUBCUT SCH ×3 (05:11→21:14)
[2019-01-26] MEDS: VANCOMYCIN HCL 1,500 MG in DEXTROSE 5%-WATER 250 ML IV SCH (05:12)
[2019-01-26] MEDS: IPRATROPIUM/ALBUTEROL 0.5-2.5 MG/3 ML AMPUL NEB SCH ×3 (08:06→23:41)
--- NOTE | 2019-01-26 09:23 | PROGRESS NOTE E ---
Progress Note NAME: BELINDA BRITO : 1940 AGE: 78Y DATE: 01/26/2019 ROOM: 602 SUBJECTIVE: The patient is a 78-year-old male who has a past medical history of dementia, COPD, congestive heart failure, coronary artery disease, hypertension. The patient was admitted yesterday with septic shock, hypertension secondary to cellulitis, possible meningitis. He had LP and the patient was started on antibiotics. He was on pressor and IV fluids. He is off pressor now and feeling much better. His blood pressure is 111/90. He is afebrile. OBJECTIVE: GENERAL: Patient lying in bed comfortable, not in distress. VITAL SIGNS: Blood pressure 111/90, temperature 98.6, heart rate 70, respiratory rate 16. HEENT: Head normocephalic, atraumatic. Pupils round, reactive to light and accommodation bilaterally. Extraocular movements intact. Ears: Tympanic membranes intact bilaterally. No discharge from the ears. No discharge from the nose. NECK: Supple. No increased JVD. No thyromegaly. No lymphadenopathy. CARDIOVASCULAR: Normal S1, S2. Regular rate and rhythm. No murmur. No gallop. RESPIRATORY: Lungs clear. ABDOMEN: Soft. MUSCULOSKELETAL: Slight edema. LABORATORY: White blood count 19.6, hemoglobin 11, creatinine is 1.5, sodium is 136. Urinalysis was unremarkable. LP was unremarkable. He has a high glucose and slightly elevated protein. White blood cells around 3 coagulase. Opening pressure is slightly elevated. ASSESSMENT: 1. SEPTIC SHOCK, PROBABLY SECONDARY TO CELLULITIS, RESOLVED. The patient is off pressor and blood pressure is stable. 2. CELLULITIS. Continue antibiotics. He is off pressor, but right now he is on ceftriaxone, vancomycin. 3. POSSIBLE MENINGITIS, IN DOUBT. The only finding in LP is high opening pressure, but the culture is still pending. Will follow the culture. Meanwhile, will continue vancomycin and ceftriaxone. 4. DEMENTIA. 5. ACUTE KIDNEY INJURY AND CKD STAGE 3 SECONDARY TO SEPTIC SHOCK, IMPROVING. Creatinine today is 1.5. 6. HYPERKALEMIA, RESOLVED. OVERALL PLAN: Will continue antibiotics for now, vancomycin and ceftriaxone. Downgrade the patient. The patient is off pressors. MEDICAL NECESSITY: The patient needs IV antibiotics. TIME SPENT: 30 with patient. DISPOSITION: Probably assisted living or residential facility. DICTATING PHYSICIAN: TOM BRISCOE M.D. [id number] PHY#: [id number] ID: [id number] JOB#: [id number] ACCT: [id number] cc: >
[2019-01-26] MEDS: CYANOCOBALAMIN (VITAMIN B-12) INJ 1000 MCG/1 ML VIAL IM SCH (10:47)
[2019-01-26 10:51] LABS: HEMOGLOBIN 10.9 g/dL (13.5-17.0); MEAN CORPUSCULAR HEMOGLOBIN 34.8 pg (27.0-33.4); MEAN CORPUSCULAR HGB CONC 34.1 g/dL (32.0-36.0); MEAN CORPUSCULAR VOLUME 102 fl (80-97); PLATELET COUNT 116 10^3/uL (150-450); RED BLOOD COUNT 3.13 10^6/uL (4.35-5.55); RED CELL DISTRIBUTION WIDTH 16.3 % (11.5-14.0); WHITE BLOOD COUNT 14.6 10^3/uL (4.0-10.5)
[2019-01-26 11:27] LABS: ABSOLUTE LYMPHOCYTES# (MANUAL) 0.9 10^3/uL (0.5-4.7); ABSOLUTE NEUTROPHILS# (MANUAL) 12.7 10^3/uL (1.7-8.2); BASOPHILS % (MANUAL) 0 % (0-2); EOSINOPHILS % (MANUAL) 0 % (0-6); LYMPHOCYTES % (MANUAL) 6 % (13-45); MONOCYTES % (MANUAL) 7 % (3-13); SEGMENTED NEUTROPHILS % (MAN) 87 % (42-78); TOTAL CELLS COUNTED 100
[2019-01-26 11:28] LABS: ANISOCYTOSIS 1+; PLATELET COMMENT DECREASED
[2019-01-26 13:37] LABS: HSV I DNA Negative (Negative)
[2019-01-26] MEDS: FOLIC ACID 1 MG in NORMAL SALINE 250 ML IV SCH (18:20)
[2019-01-26] MEDS: CEFTRIAXONE 1 GM/D5W RTU 1 GM/50 ML RTUPB IV SCH (18:29)
[2019-01-27] MEDS: INSULIN LISPRO 100 UNIT/ML 3 ML VIAL SUBCUT SCH ×4 (00:14→18:00)
[2019-01-27] MEDS: VANCOMYCIN HCL 1,500 MG in DEXTROSE 5%-WATER 250 ML IV SCH (05:13)
[2019-01-27] MEDS: DEXAMETHASONE SOD PHOS INJ 10 MG/1 ML VIAL IV SCH ×3 (05:14→22:25)
[2019-01-27] MEDS: HEPARIN SOD (PORCINE) 5,000 UNIT/ML 1 ML SYRINGE SUBCUT SCH ×3 (05:14→22:26)
[2019-01-27] MEDS: IPRATROPIUM/ALBUTEROL 0.5-2.5 MG/3 ML AMPUL NEB SCH ×3 (08:11→23:51)
[2019-01-27 09:59] LABS: HEMATOCRIT 33.2 % (37.9-51.0); HEMOGLOBIN 11.4 g/dL (13.5-17.0); MEAN CORPUSCULAR HEMOGLOBIN 34.8 pg (27.0-33.4); MEAN CORPUSCULAR HGB CONC 34.2 g/dL (32.0-36.0); MEAN CORPUSCULAR VOLUME 102 fl (80-97); PLATELET COUNT 119 10^3/uL (150-450); RED BLOOD COUNT 3.27 10^6/uL (4.35-5.55); RED CELL DISTRIBUTION WIDTH 16.3 % (11.5-14.0); WHITE BLOOD COUNT 10.3 10^3/uL (4.0-10.5)
[2019-01-27 10:17] LABS: ABSOLUTE LYMPHOCYTES# (MANUAL) 0.4 10^3/uL (0.5-4.7); ABSOLUTE MONOCYTES # (MANUAL) 0.3 10^3/uL (0.1-1.4); ABSOLUTE NEUTROPHILS# (MANUAL) 9.6 10^3/uL (1.7-8.2); ANISOCYTOSIS 1+; BASOPHILS % (MANUAL) 0 % (0-2); EOSINOPHILS % (MANUAL) 0 % (0-6); LYMPHOCYTES % (MANUAL) 4 % (13-45); MONOCYTES % (MANUAL) 3 % (3-13); SEGMENTED NEUTROPHILS % (MAN) 93 % (42-78); TOTAL CELLS COUNTED 100
[2019-01-27 10:18] LABS: OVALOCYTES 1+; PLATELET COMMENT DECREASED; POIKILOCYTOSIS 1+
[2019-01-27] MEDS: CYANOCOBALAMIN (VITAMIN B-12) INJ 1000 MCG/1 ML VIAL IM SCH (10:37)
--- NOTE | 2019-01-27 14:58 | PROGRESS NOTE E ---
Progress Note NAME: BELINDA BRITO : 1940 AGE: 78Y DATE: 01/27/2019 ROOM: 602 SUBJECTIVE: The patient is a pleasant 78-year-old male who has a history of dementia, COPD, congestive heart failure, coronary artery disease, hypertension, admitted with septic shock. Initially, blood pressure was low, treated with IV fluids. He was on pressors, but now he is off pressor and doing much better. He is on antibiotic also, on vancomycin. OBJECTIVE: GENERAL: Patient lying in bed, comfortable, not in distress. VITAL SIGNS: Blood pressure 130/78, temperature 97.9, saturation 96% on 1 liter. HEENT: Head normocephalic, atraumatic. Pupils round, reactive to light and accommodation bilaterally. Extraocular movements intact. Ears: Tympanic membranes intact bilaterally. No discharge from the ears. No discharge from the nose. NECK: Supple. No increased JVD. No thyromegaly. No lymphadenopathy. CARDIOVASCULAR: Normal S1, S2. Regular rate and rhythm. No murmur, no gallop. RESPIRATORY: Lungs clear. ABDOMEN: Soft, obese. MUSCULOSKELETAL: Edema. LABORATORY DATA: From yesterday, white blood count has come down to 14, hemoglobin is 10.9. Creatinine is 1.5. Labs are pending for today. ASSESSMENT: 1. SEPTIC SHOCK, SECONDARY TO CELLULITIS, RESOLVED. 2. POSSIBLE MENINGITIS. LP did not confirm that. 3. PLEURAL EFFUSIONS. 4. ALTERED MENTAL STATUS. 5. HYPERKALEMIA, RESOLVED. PLAN: Will continue antibiotics and follow cultures. The patient is downgraded to MICU. Continue ceftriaxone and vancomycin. Medical necessity IV antibiotics. Will consult Ortho. Consulting social services analyst for placement. Probably he needs assisted living. DICTATING PHYSICIAN: TOM BRISCOE M.D. [id number] PHY#: [id number] ID: [id number] JOB#: [id number] ACCT: [id number] cc: >
[2019-01-27] MEDS ORDERED: FOLIC ACID INJ 5 MG/1 ML 10 ML VIAL ONE (18:58)
[2019-01-27] MEDS: CEFTRIAXONE 1 GM/D5W RTU 1 GM/50 ML RTUPB IV SCH (20:14)
[2019-01-27] MEDS: FOLIC ACID 1 MG in NORMAL SALINE 250 ML IV SCH (20:17)
[2019-01-28] MEDS: INSULIN LISPRO 100 UNIT/ML 3 ML VIAL SUBCUT SCH ×5 (00:24→22:54)
[2019-01-28] MEDS: DEXAMETHASONE SOD PHOS INJ 10 MG/1 ML VIAL IV SCH (06:35)
[2019-01-28] MEDS: VANCOMYCIN HCL 1,500 MG in DEXTROSE 5%-WATER 250 ML IV SCH (06:36)
[2019-01-28] MEDS: HEPARIN SOD (PORCINE) 5,000 UNIT/ML 1 ML SYRINGE SUBCUT SCH ×3 (06:36→22:14)
[2019-01-28 07:39] LABS: HSV II DNA Negative (Negative)
[2019-01-28] MEDS: IPRATROPIUM/ALBUTEROL 0.5-2.5 MG/3 ML AMPUL NEB SCH ×2 (07:52→16:34)
[2019-01-28] MEDS: CYANOCOBALAMIN (VITAMIN B-12) INJ 1000 MCG/1 ML VIAL IM SCH (09:22)
[2019-01-28] MEDS ORDERED: ALBUTEROL SULFATE HFA (90 MCG/PUFF) 200 PUFF/8.5 GM MDI IH PRN (11:27)
[2019-01-28] MEDS ORDERED: MELATONIN 5 MG TABLET PO PRN (11:27)
--- NOTE | 2019-01-28 11:47 | PDOC PROGRESS REPORT ---
Subjective Progress Note for:: 01/28/19 Subjective:: 78 year old male with an extensive past medical history of COPD, congestive heart failure, coronary artery disease status post remote bypass grafting, hypertension and advanced dementia who requires assistance with feeding at baseline. He presents with his after the abrupt onset of vomiting of gastric contents x1, fever with altered mental status from baseline. Patient has chronic cellulitis of the right leg without antibiotics there are no new medications initiated patient is otherwise felt well in the emergency room is found to have septic shock with hypotension, fever, hyperkalemia chest x-ray revealing bilateral pleural effusion without infiltrate, LP reveals increased opening pressure, right leg is hot and erythemic with several open excoriations without exudate. He started on vancomycin, Rocephin and referred to the hospitalist for admission. denies recent rash or tick bite Patient verifies CODE STATUS is full code 01/25/2019-pt is comfortably in bed communicating well not in disress.still hypotensive on neonynephrine.denies any problems. 01/28/2019 patient is comfortably in the bed complaining of right lower leg pain on gentle palpation is jumped in pain we going to arrange for the x-ray of the right tibia and fibula. Patient is afebrile. No acute events in the last 24 hours. Reason For Visit: ACUTE ENCEPHALOPATHY, DEMENTIA, FEVER, HYPERKALEMI Physical Exam Vital Signs: Temp Pulse Resp BP Pulse Ox 97.6 F 64 16 148/72 H 95 01/28/19 04:03 01/28/19 07:52 01/28/19 07:52 01/28/19 04:03 01/28/19 07:52 Intake & Output 01/27/19 01/28/19 01/29/19 06:59 06:59 06:59 Intake Total 1010 950.2 250 Output Total 2280 2215 Balance -1270 -1264.8 250 Weight 97.4 kg 91 kg General appearance: PRESENT: no acute distress Eye exam: PRESENT: PERRLA Teeth exam: PRESENT: poor dentation Neck exam: ABSENT: carotid bruit, JVD, lymphadenopathy, thyromegaly Respiratory exam: PRESENT: decreased breath sounds Cardiovascular exam: PRESENT: irregular rhythm, systolic murmur, tachycardia, other - Surgical scar over the sternum GI/Abdominal exam: PRESENT: normal bowel sounds, soft. ABSENT: distended, guarding, mass, organolmegaly, rebound, tenderness Extremities exam: PRESENT: full ROM. ABSENT: calf tenderness, clubbing, pedal edema Neurological exam: PRESENT: alert, awake, oriented to person, oriented to place, oriented to time, oriented to situation, CN II-XII grossly intact. ABSENT: motor sensory deficit Psychiatric exam: PRESENT: appropriate affect, normal mood. ABSENT: homicidal ideation, suicidal ideation Results Laboratory Results: 01/27/19 09:45 01/26/19 04:16 01/25/19 04:25 Cerebral Spinal Fluid - Tube 2 (Csf) Gram Stain - Final 01/25/19 04:25 Cerebral Spinal Fluid - Tube 2 (Csf) CSF Culture - Final NO GROWTH 3 DAYS 01/24/19 22:54 Blood Blood Culture - Final Strep Dysgalactiae [facility] 01/24/19 21:40 Blood Blood Culture - Final Strep Dysgalactiae [facility] 01/24/19 01/24/19 01/24/19 21:40 21:40 21:40 Creatine Kinase 60 CK-MB (CK-2) 0.60 Troponin I < 0.012 NT-Pro-B Natriuret Pep 01/25/19 23:25 Creatine Kinase CK-MB (CK-2) Troponin I NT-Pro-B Natriuret Pep 7710 H Impressions: Chest X-Ray 01/24/19 21:21 IMPRESSION: No acute disease. Abdomen/Pelvis CT 01/25/19 00:26 IMPRESSION: Fluid overloaded state with pleural effusions, mild ascites as well as mild body wall anasarca. Head CT 01/25/19 00:26 IMPRESSION: No acute intracranial findings. Assessment & Plan - Diagnosis (1) Meningitis Is this a current diagnosis for this admission?: Yes Plan: Possible meningitis with increased opening pressure, dexamethasone, vancomycin, Rocephin initiated, follow-up CSF studies and blood culture 01/25/[id number]-zhpf-old male admitted for altered mental status LP as part of differential. On p.o. dexamethasone, IV vancomycin IV Rocephin. On examination 10 minutes ago patient is alert awake oriented able to give his date of able to tell me that he was in [facility]. CSF stain negative for bacteria and WBC. Blood cultures are positive for gram-positive cocci in chains. Plan is to continue the present management. 01/28/2019 patient is presently on cefepime and vancomycin the CSF cultures came back negative. Meningitis is unlikely. Patient is alert awake oriented communicating very well. (2) Cellulitis of right leg Is this a current diagnosis for this admission?: Yes Plan: 01/25/2019-patient is admitted with right lower leg cellulitis he was started on IV Rocephin and IV vancomycin blood culture positive for gram-positive cocci in chains. Waiting for the sensitivity report. Plan is to continue the present management in the meantime. 01/28/2019-patient was admitted with cellulitis of the lower leg extremity presently on IV cefepime and IV vancomycin the cultures came back positive for strep dysGalantiae plan is to continue the present management. (3) Pleural effusion Is this a current diagnosis for this admission?: Yes Plan: 01/25/2019-patient was admitted with pleural effusion and a CT scan shows fluid overload with pleural effusions and mild ascites as well as mild body wall anasarca. Because of pleural effusion is unknown. Patient is hypotensive on pressors at this time. Patient is given the history of heavy alcohol use several years ago may be has liver failure with ascites and pleural effusions. 01/28/2019-initial CT scan shows fluid overload with pleural effusions and mild ascites as well as mild body wall anasarca. These findings are most likely secondary to liver failure. plan is to repeat the x-ray today. (4) Severe sepsis Is this a current diagnosis for this admission?: Yes Plan: Likely secondary to #1 or 2. IV fluid challenge, Levophed as needed 01/25/2019-patient was admitted severe sepsis with acute kidney injury baseline creatinine is 1.09 it was not 1.74. He is on IV pressors. Chest x-ray shows fluid overload with pleural effusions and ascites. Unable to give IV fluids because of the concerns about fluid overload worsening. Lactic acid on admission is 1.3. 01/28/2019 patient was admitted with septic shock was treated with IV antibiotics and IV fluids blood pressure today is 148/72 temperature 97.6, septic shock is resolved. Blood cultures are positive for strep dysgalactiae. (5) Hyperkalemia Is this a current diagnosis for this admission?: Yes Plan: 01/25/2019-patient's latest potassium level is 4.7 on admission it is 5.8. Hyperkalemia is resolving. 01/28/2019-on admission patient potassium so was her elevated. Latest potassium level is 5.0 plan is to recheck his chemistry tomorrow. (6) Acute kidney failure Is this a current diagnosis for this admission?: Yes Plan: 01/25/2019-base line 1.08 ,,on admission it is 1.74 due to sepsis, may be due to prerenal causes. Plan is to closely monitor the creatinine levels. 01/28/2019 patient's baseline creatinine is around 1.09 today it is 1.55 acute ki dney injury secondary to sepsis is resolving. Plan is to repeat the labs tomorrow. - Time Time Spent with patient: 15-24 minutes Smoking Cessation Education: 3 to 10 minutes Medications reviewed and adjusted accordingly: Yes Anticipated discharge: SNF
[2019-01-28] MEDS: FUROSEMIDE 80 MG TABLET PO SCH (12:56)
[2019-01-28] MEDS: DONEPEZIL HCL 5 MG TABLET PO SCH ×2 (12:56→18:24)
--- NOTE | 2019-01-28 15:34 | RADIOLOGY REPORT (SQ) ---
EXAM DESCRIPTION: CHEST 2 VIEWS COMPLETED DATE/TIME: 01/28/2019 3:14 pm REASON FOR STUDY: pleural effusion COMPARISON: 01/24/2019 EXAM PARAMETERS: NUMBER OF VIEWS: two views TECHNIQUE: Digital Frontal and Lateral radiographic views of the chest acquired. RADIATION DOSE: NA LIMITATIONS: none FINDINGS: LUNGS AND PLEURA: Small bilateral pleural effusions. MEDIASTINUM AND HILAR STRUCTURES: No masses or contour abnormalities. HEART AND VASCULAR STRUCTURES: Cardiomegaly status post median sternotomy. BONES: No acute findings. HARDWARE: None in the chest. OTHER: No other significant finding. IMPRESSION: Small bilateral pleural effusions new from prior radiographs. TECHNICAL DOCUMENTATION: JOB ID: [id number] [employer]- All Rights Reserved Reading location - IP/workstation name: [email or web address]
--- NOTE | 2019-01-28 15:35 | RADIOLOGY REPORT (SQ) ---
EXAM DESCRIPTION: TIBIA FIBULA RIGHT COMPLETED DATE/TIME: 01/28/2019 3:14 pm REASON FOR STUDY: pain COMPARISON: None. NUMBER OF VIEWS: Two views. TECHNIQUE: Two radiographic images acquired of the right tibia and fibula to include the knee and an kle in at least one projection. LIMITATIONS: None. FINDINGS: MINERALIZATION: Normal. BONES: No acute fracture or dislocation. No worrisome bone lesions. SOFT TISSUES: No obvious swelling or foreign body. OTHER: No other significant finding. IMPRESSION: NEGATIVE STUDY OF THE RIGHT TIBIA AND FIBULA. NO RADIOGRAPHIC EVIDENCE OF ACUTE INJURY. TECHNICAL DOCUMENTATION: JOB ID: [id number] [employer]- All Rights Reserved Reading location - IP/workstation name: [email or web address]
[2019-01-28] MEDS ORDERED: (PENDING PHARMACY ID) (Donepezil Hcl [Aricept] 10 MG) PO SCH (18:00)
[2019-01-28] MEDS: CEFTRIAXONE 1 GM/D5W RTU 1 GM/50 ML RTUPB IV SCH (18:25)
[2019-01-28] MEDS: FOLIC ACID 1 MG in NORMAL SALINE 250 ML IV SCH (19:00)
[2019-01-28] MEDS: ERYTHROMYCIN 0.5% OPH OINT 1 GM UNIT DOSE OU SCH (22:54)
[2019-01-28] MEDS: SERTRALINE HCL 50 MG TABLET PO SCH (22:54)
[2019-01-28] MEDS: GLIPIZIDE 10 MG TABLET PO SCH (22:55)
[2019-01-28] MEDS: METOPROLOL TARTRATE 25 MG TABLET PO SCH (22:55)
[2019-01-29] MEDS: IPRATROPIUM/ALBUTEROL 0.5-2.5 MG/3 ML AMPUL NEB SCH ×3 (01:09→15:58)
[2019-01-29] MEDS: HEPARIN SOD (PORCINE) 5,000 UNIT/ML 1 ML SYRINGE SUBCUT SCH ×3 (06:09→22:04)
[2019-01-29] MEDS: VANCOMYCIN HCL 1,500 MG in DEXTROSE 5%-WATER 250 ML IV SCH (06:12)
[2019-01-29 06:38] LABS: ABSOLUTE LYMPHOCYTES (AUTO) 1.1 10^3/uL (0.5-4.7); ABSOLUTE MONOCYTES (AUTO) 0.9 10^3/uL (0.1-1.4); ABSOLUTE NEUT (AUTO) 6.9 10^3/uL (1.7-8.2); BASOPHILS % (AUTO) 0.1 % (0-2); EOSINOPHILS % (AUTO) 0.1 % (0-6); HEMATOCRIT 33.3 % (37.9-51.0); HEMOGLOBIN 11.5 g/dL (13.5-17.0); LYMPHOCYTES % (AUTO) 12.1 % (13-45); MEAN CORPUSCULAR HEMOGLOBIN 34.7 pg (27.0-33.4); MEAN CORPUSCULAR HGB CONC 34.6 g/dL (32.0-36.0); MEAN CORPUSCULAR VOLUME 100 fl (80-97); MONOCYTES % (AUTO) 10.5 % (3-13); PLATELET COUNT 140 10^3/uL (150-450); RED BLOOD COUNT 3.32 10^6/uL (4.35-5.55); RED CELL DISTRIBUTION WIDTH 15.7 % (11.5-14.0); SEGMENTED NEUTROPHILS % (AUTO) 77.2 % (42-78); TOTAL CELLS COUNTED % (AUTO) 100 %; WHITE BLOOD COUNT 8.9 10^3/uL (4.0-10.5)
[2019-01-29 06:54] LABS: ALANINE AMINOTRANSFERASE 37 U/L (21-72); ALBUMIN 3.5 g/dL (3.5-5.0); ALKALINE PHOSPHATASE 93 U/L (38-126); ANION GAP 9 (5-19); ASPARTATE AMINO TRANSFERASE 36 U/L (17-59); BILIRUBIN,DIRECT 0.3 mg/dL (0.0-0.4); BILIRUBIN,TOTAL 0.6 mg/dL (0.2-1.3); BLOOD UREA NITROGEN 33 mg/dL (7-20); CALCIUM 9.5 mg/dL (8.4-10.2); CARBON DIOXIDE 24 mmol/L (22-30); CHLORIDE 104 mmol/L (98-107); GLUCOSE 81 mg/dL (75-110); POTASSIUM 4.2 mmol/L (3.6-5.0); SODIUM 137.3 mmol/L (137-145); TOTAL PROTEIN 6.9 g/dL (6.3-8.2)
[2019-01-29 06:58] LABS: VANCOMYCIN,TROUGH 9.3 ug/mL (5.0-20.0)
[2019-01-29] MEDS ORDERED: POTASSIUM CHLORIDE 10 MEQ CAPSULE.ER PO SCH (08:00)
[2019-01-29] MEDS ORDERED: CYANOCOBALAMIN (VITAMIN B-12) 1,000 MCG TABLET PO SCH (08:00)
[2019-01-29] MEDS: INSULIN LISPRO 100 UNIT/ML 3 ML VIAL SUBCUT SCH ×4 (08:46→22:11)
[2019-01-29] MEDS: MODAFINIL 100 MG TABLET PO SCH (09:27)
[2019-01-29] MEDS: CETIRIZINE 10 MG TABLET PO SCH (09:28)
[2019-01-29] MEDS: DONEPEZIL HCL 5 MG TABLET PO SCH ×2 (09:28→17:42)
[2019-01-29] MEDS: FUROSEMIDE 80 MG TABLET PO SCH (09:28)
[2019-01-29] MEDS: GLIPIZIDE 10 MG TABLET PO SCH ×2 (09:28→22:04)
[2019-01-29] MEDS: METOPROLOL TARTRATE 25 MG TABLET PO SCH ×2 (09:28→22:04)
[2019-01-29] MEDS: CYANOCOBALAMIN (VITAMIN B-12) INJ 1000 MCG/1 ML VIAL IM SCH (09:30)
--- NOTE | 2019-01-29 09:45 | PDOC PROGRESS REPORT ---
Subjective Progress Note for:: 01/29/19 Subjective:: 78 year old male with an extensive past medical history of COPD, congestive heart failure, coronary artery disease status post remote bypass grafting, hypertension and advanced dementia who requires assistance with feeding at baseline. He presents with his after the abrupt onset of vomiting of gastric contents x1, fever with altered mental status from baseline. Patient has chronic cellulitis of the right leg without antibiotics there are no new medications initiated patient is otherwise felt well in the emergency room is found to have septic shock with hypotension, fever, hyperkalemia chest x-ray revealing bilateral pleural effusion without infiltrate, LP reveals increased opening pressure, right leg is hot and erythemic with several open excoriations without exudate. He started on vancomycin, Rocephin and referred to the hospitalist for admission. denies recent rash or tick bite Patient verifies CODE STATUS is full code 01/25/2019-pt is comfortably in bed communicating well not in disress.still hypotensive on neonynephrine.denies any problems. 01/28/2019 patient is comfortably in the bed complaining of right lower leg pain on gentle palpation is jumped in pain we going to arrange for the x-ray of the right tibia and fibula. Patient is afebrile. No acute events in the last 24 hours. 01/29/2019 patient is comfortably in the bed complaining of back pain he has this chronic back pains he is using brace at home but he does not want any pain medications here I am going to order for the K pad for him. No acute events in the last 24 hours. X-ray of the right lower extremity came back negative for fractures. Patient's had a discussion with the social and political studies professor she wanted her to go to a rehab facility her [facility]. Reason For Visit: ACUTE ENCEPHALOPATHY, DEMENTIA, FEVER, HYPERKALEMI Physical Exam Vital Signs: Temp Pulse Resp BP Pulse Ox 97.5 F 60 16 110/61 95 01/29/19 03:55 01/29/19 07:37 01/29/19 07:37 01/29/19 03:55 01/29/19 07:37 Intake & Output 01/28/19 01/29/19 01/30/19 06:59 06:59 06:59 Intake Total 950.2 1023.2 250 Output Total 2215 3375 Balance -1264.8 -2351.8 250 Weight 91 kg 96.6 kg General appearance: PRESENT: no acute distress Head exam: PRESENT: atraumatic Eye exam: PRESENT: PERRLA Mouth exam: PRESENT: moist, tongue midline Neck exam: ABSENT: carotid bruit, JVD, lymphadenopathy, thyromegaly Respiratory exam: PRESENT: decreased breath sounds Cardiovascular exam: PRESENT: tachycardia GI/Abdominal exam: PRESENT: normal bowel sounds, soft. ABSENT: distended, guarding, mass, organolmegaly, rebound, tenderness Gentrourinary exam: PRESENT: indwelling catheter Neurological exam: PRESENT: alert, awake, oriented to person, oriented to place, oriented to time, oriented to situation, CN II-XII grossly intact. ABSENT: motor sensory deficit Psychiatric exam: PRESENT: appropriate affect, normal mood. ABSENT: homicidal ideation, suicidal ideation Results Laboratory Results: 01/29/19 05:44 01/29/19 05:44 01/29/19 01/29/19 05:44 05:44 WBC 8.9 RBC 3.32 L Hgb 11.5 L Hct 33.3 L MCV 100 H MCH 34.7 H MCHC 34.6 RDW 15.7 H Plt Count 140 L Seg Neutrophils % 77.2 Lymphocytes % 12.1 L Monocytes % 10.5 Eosinophils % 0.1 Basophils % 0.1 Absolute Neutrophils 6.9 Absolute Lymphocytes 1.1 Absolute Monocytes 0.9 Absolute Eosinophils 0.0 Absolute Basophils 0.0 Sodium 137.3 Potassium 4.2 Chloride 104 Carbon Dioxide 24 Anion Gap 9 BUN 33 H Creatinine 0.84 Est GFR ( Amer) > 60 Est GFR (Non-Af Amer) > 60 Glucose 81 Calcium 9.5 Magnesium 2.0 Total Bilirubin 0.6 AST 36 ALT 37 Alkaline Phosphatase 93 Total Protein 6.9 Albumin 3.5 01/25/19 04:25 Cerebral Spinal Fluid - Tube 2 (Csf) Gram Stain - Final 01/25/19 04:25 Cerebral Spinal Fluid - Tube 2 (Csf) CSF Culture - Final NO GROWTH 3 DAYS 01/24/19 01/24/19 01/24/19 21:40 21:40 21:40 Creatine Kinase 60 CK-MB (CK-2) 0.60 Troponin I < 0.012 NT-Pro-B Natriuret Pep 01/25/19 23:25 Creatine Kinase CK-MB (CK-2) Troponin I NT-Pro-B Natriuret Pep 7710 H Impressions: Abdomen/Pelvis CT 01/25/19 00:26 IMPRESSION: Fluid overloaded state with pleural effusions, mild ascites as well as mild body wall anasarca. Head CT 01/25/19 00:26 IMPRESSION: No acute intracranial findings. Chest X-Ray 01/28/19 00:00 IMPRESSION: Small bilateral pleural effusions new from prior radiographs. Tibia/Fibula X-Ray 01/28/19 00:00 IMPRESSION: NEGATIVE STUDY OF THE RIGHT TIBIA AND FIBULA. NO RADIOGRAPHIC EVIDENCE OF ACUTE INJURY. Assessment and Plan - Diagnosis (1) Meningitis Is this a current diagnosis for this admission?: Yes Plan: with increased opening pressure, dexamethasone, vancomycin, Rocephin initiated, follow-up CSF studies and blood culture 01/[id number]-hega-old male admitted for altered mental status LP as part of differential. On p.o. dexamethasone, IV vancomycin IV Rocephin. On examination 10 minutes ago patient is alert awake oriented able to give his date of able to tell me that he was in [facility]. CSF stain negative for bacteria and WBC. Blood cultures are positive for gram-positive cocci in chains. Plan is to continue the present management. 01/28/2019 patient is presently on cefepime and vancomycin the CSF cultures came back negative. Meningitis is unlikely. Patient is alert awake oriented communicating very well. 01/29/2019-meningitis is ruled out. Patient is alert and awake oriented communicating well. Patient is presently on cefepime and vancomycin. The blood cultures from 01/24/2019 showing strep dysgalactiae plan is to continue the present antibiotic therapy. (2) Cellulitis of right leg Is this a current diagnosis for this admission?: Yes Plan: 01/25/2019-patient is admitted with right lower leg cellulitis he was started on IV Rocephin and IV vancomycin blood culture positive for gram-positive cocci in chains. Waiting for the sensitivity report. Plan is to continue the present management in the meantime. 01/28/2019-patient was admitted with cellulitis of the lower leg extremity presently on IV cefepime and IV vancomycin the cultures came back positive for strep dysGalantiae plan is to continue the present management. 01/29/2019-patient is admitted with right lower axilla light is resolved. Patient is presently on IV cefepime and IV vancomycin for blood cultures that was positive for strep dysgalantiae and is to continue the present management. (3) Pleural effusion Is this a current diagnosis for this admission?: Yes Plan: 01/25/2019-patient was admitted with pleural effusion and a CT scan shows fluid overload with pleural effusions and mild ascites as well as mild body wall anasarca. Because of pleural effusion is unknown. Patient is hypotensive on pressors at this time. Patient is given the history of heavy alcohol use several years ago may be has liver failure with ascites and pleural effusions. 01/28/2019-initial CT scan shows fluid overload with pleural effusions and mild ascites as well as mild body wall anasarca. These findings are most likely secondary to liver failure. plan is to repeat the x-ray today. 01/01/2019 chest x-ray done yesterday shows small pleural effusions. His Lasix was started back on yesterday. Patient pulse ox is 95% on 2 L. Asymptomatic. Plan is to continue the present management. (4) Severe sepsis Is this a current diagnosis for this admission?: Yes Plan: Likely secondary to #1 or 2. IV fluid challenge, Levophed as needed 01/25/2019-patient was admitted severe sepsis with acute kidney injury baseline creatinine is 1.09 it was not 1.74. He is on IV pressors. Chest x-ray shows fluid overload with pleural effusions and ascites. Unable to give IV fluids because of the concerns about fluid overload worsening. Lactic acid on admission is 1.3. 01/28/2019 patient was admitted with septic shock was treated with IV antibiotics and IV fluids blood pressure today is 148/72 temperature 97.6, septic shock is resolved. Blood cultures are positive for strep dysgalactiae. 01/29/2019-patient is admitted with septic shock latest blood pressure is 110/61 he is back on his antihypertensive medications including Lasix patient is asymptomatic septic shock is resolved. (5) Hyperkalemia Is this a current diagnosis for this admission?: Yes Plan: 01/25/2019-patient's latest potassium level is 4.7 on admission it is 5.8. Hyperkalemia is resolving. 01/28/2019-on admission patient potassium so was her elevated. Latest potassium level is 5.0 plan is to recheck his chemistry tomorrow. 2018-patient potassium level today is 4.2 hyperkalemia is resolved. (6) Acute kidney failure Is this a current diagnosis for this admission?: Yes Plan: 01/25/2019-base line 1.08 ,,on admission it is 1.74 due to sepsis, may be due to prerenal causes. Plan is to closely monitor the creatinine levels. 01/28/2019 patient's baseline creatinine is around 1.09 today it is 1.55 acute kidney injury secondary to sepsis is resolving. Plan is to repeat the labs tomorrow. 2018-patient's baseline creatinine is around 1.09 yesterday it was 1.55 it was improved to 0.84 today acute kidney injury most likely due to prerenal causes resolved. - Time Time Spent with patient: 15-24 minutes Medications reviewed and adjusted accordingly: Yes Anticipated discharge: SNF
[2019-01-29] MEDS ORDERED: (PENDING PHARMACY ID) (Sertraline Hcl [Zoloft] 200 MG) PO SCH (10:00)
[2019-01-29] MEDS ORDERED: FUROSEMIDE 40 MG TABLET PO SCH (10:00)
[2019-01-29] MEDS: FOLIC ACID 1 MG in NORMAL SALINE 250 ML IV SCH (17:42)
[2019-01-29] MEDS: VANCOMYCIN HCL 750 MG in DEXTROSE 5%-WATER 250 ML IV SCH (19:31)
[2019-01-29] MEDS ORDERED: CEFTRIAXONE 2 GM/D5W RTU 2 GM/50 ML RTUPB IV SCH (22:00)
[2019-01-29] MEDS: SERTRALINE HCL 50 MG TABLET PO SCH (22:04)
[2019-01-29] MEDS: ERYTHROMYCIN 0.5% OPH OINT 1 GM UNIT DOSE OU SCH (22:04)
[2019-01-29] MEDS: CEFTRIAXONE 1 GM/D5W RTU 1 GM/50 ML RTUPB IV SCH (22:26)
[2019-01-30] MEDS: IPRATROPIUM/ALBUTEROL 0.5-2.5 MG/3 ML AMPUL NEB SCH ×4 (00:21→23:46)
[2019-01-30 05:17] LABS: ABSOLUTE EOSINOPHILS # (AUTO) 0.1 10^3/uL (0.0-0.6); ABSOLUTE LYMPHOCYTES (AUTO) 0.9 10^3/uL (0.5-4.7); ABSOLUTE MONOCYTES (AUTO) 1.1 10^3/uL (0.1-1.4); ABSOLUTE NEUT (AUTO) 5.3 10^3/uL (1.7-8.2); BASOPHILS % (AUTO) 0.2 % (0-2); EOSINOPHILS % (AUTO) 1.7 % (0-6); HEMOGLOBIN 11.8 g/dL (13.5-17.0); LYMPHOCYTES % (AUTO) 12.4 % (13-45); MEAN CORPUSCULAR HEMOGLOBIN 34.6 pg (27.0-33.4); MEAN CORPUSCULAR HGB CONC 34.5 g/dL (32.0-36.0); MEAN CORPUSCULAR VOLUME 100 fl (80-97); MONOCYTES % (AUTO) 14.6 % (3-13); PLATELET COUNT 133 10^3/uL (150-450); RED BLOOD COUNT 3.39 10^6/uL (4.35-5.55); RED CELL DISTRIBUTION WIDTH 15.8 % (11.5-14.0); SEGMENTED NEUTROPHILS % (AUTO) 71.1 % (42-78); TOTAL CELLS COUNTED % (AUTO) 100 %; WHITE BLOOD COUNT 7.5 10^3/uL (4.0-10.5)
[2019-01-30 05:39] LABS: ALANINE AMINOTRANSFERASE 39 U/L (21-72); ALBUMIN 3.1 g/dL (3.5-5.0); ALKALINE PHOSPHATASE 99 U/L (38-126); ANION GAP 10 (5-19); ASPARTATE AMINO TRANSFERASE 49 U/L (17-59); BILIRUBIN,DIRECT 0.2 mg/dL (0.0-0.4); BILIRUBIN,TOTAL 0.6 mg/dL (0.2-1.3); BLOOD UREA NITROGEN 33 mg/dL (7-20); CALCIUM 9.1 mg/dL (8.4-10.2); CARBON DIOXIDE 26 mmol/L (22-30); CHLORIDE 102 mmol/L (98-107); GLUCOSE 74 mg/dL (75-110); POTASSIUM 4.2 mmol/L (3.6-5.0); SODIUM 137.6 mmol/L (137-145); TOTAL PROTEIN 6.4 g/dL (6.3-8.2)
[2019-01-30] MEDS: HEPARIN SOD (PORCINE) 5,000 UNIT/ML 1 ML SYRINGE SUBCUT SCH ×3 (06:24→21:11)
[2019-01-30] MEDS: VANCOMYCIN HCL 750 MG in DEXTROSE 5%-WATER 250 ML IV SCH (06:29)
--- NOTE | 2019-01-30 08:08 | PDOC PROGRESS REPORT ---
Subjective Progress Note for:: 01/30/19 Subjective:: 78 year old male with an extensive past medical history of COPD, congestive heart failure, coronary artery disease status post remote bypass grafting, hypertension and advanced dementia who requires assistance with feeding at baseline. He presents with his after the abrupt onset of vomiting of gastric contents x1, fever with altered mental status from baseline. Patient has chronic cellulitis of the right leg without antibiotics there are no new medications initiated patient is otherwise felt well in the emergency room is found to have septic shock with hypotension, fever, hyperkalemia chest x-ray revealing bilateral pleural effusion without infiltrate, LP reveals increased opening pressure, right leg is hot and erythemic with several open excoriations without exudate. He started on vancomycin, Rocephin and referred to the hospitalist for admission. denies recent rash or tick bite Patient verifies CODE STATUS is full code 01/25/2019-pt is comfortably in bed communicating well not in disress.still hypotensive on neonynephrine.denies any problems. 01/28/2019 patient is comfortably in the bed complaining of right lower leg pain on gentle palpation is jumped in pain we going to arrange for the x-ray of the right tibia and fibula. Patient is afebrile. No acute events in the last 24 hours. 01/29/2019 patient is comfortably in the bed complaining of back pain he has this chronic back pains he is using brace at home but he does not want any pain medications here I am going to order for the K pad for him. No acute events in the last 24 hours. X-ray of the right lower extremity came back negative for fractures. Patient's had a discussion with the social science teacher she wanted her to go to a rehab facility her preferences [facility]. 01/30/2019-no acute events in the last 24 hours. Patient is afebrile. Compla ining of right lower leg pain especially in cough area. On gentle touch is jumping and pain. We going to do the DVT studies. To start him on Percocet 1 tablet every 4 hours as needed for pain. BP is 98/52 I requested the nurse to check the manual blood pressure. Patient's prefer to [facility] group home placement waiting for the bed availability. Reason For Visit: ACUTE ENCEPHALOPATHY, DEMENTIA, FEVER, HYPERKALEMI Physical Exam Vital Signs: Temp Pulse Resp BP Pulse Ox 97.8 F 66 16 98/52 L 95 01/30/19 03:27 01/30/19 03:27 01/30/19 03:27 01/30/19 03:27 01/30/19 03:27 Intake & Output 01/29/19 01/30/19 01/31/19 06:59 06:59 06:59 Intake Total 1023.2 2305.2 Output Total 3375 5200 Balance -2351.8 -2894.8 Weight 96.6 kg 96.6 kg General appearance: PRESENT: mild distress Head exam: PRESENT: atraumatic Eye exam: PRESENT: PERRLA Mouth exam: PRESENT: moist, tongue midline Neck exam: ABSENT: carotid bruit, JVD, lymphadenopathy, thyromegaly Respiratory exam: PRESENT: decreased breath sounds Cardiovascular exam: PRESENT: tachycardia GI/Abdominal exam: PRESENT: normal bowel sounds, soft. ABSENT: distended, guarding, mass, organolmegaly, rebound, tenderness Extremities exam: PRESENT: calf tenderness Neurological exam: PRESENT: alert, awake, oriented to person, oriented to place, oriented to time, oriented to situation, CN II-XII grossly intact. ABSENT: motor sensory deficit Psychiatric exam: PRESENT: appropriate affect, normal mood. ABSENT: homicidal ideation, suicidal ideation Results Laboratory Results: 01/30/19 04:19 01/30/19 04:19 01/30/19 01/30/19 04:19 04:19 WBC 7.5 RBC 3.39 L Hgb 11.8 L Hct 34.0 L MCV 100 H MCH 34.6 H MCHC 34.5 RDW 15.8 H Plt Count 133 L Seg Neutrophils % 71.1 Lymphocytes % 12.4 L Monocytes % 14.6 H Eosinophils % 1.7 Basophils % 0.2 Absolute Neutrophils 5.3 Absolute Lymphocytes 0.9 Absolute Monocytes 1.1 Absolute Eosinophils 0.1 Absolute Basophils 0.0 Sodium 137.6 Potassium 4.2 Chloride 102 Carbon Dioxide 26 Anion Gap 10 BUN 33 H Creatinine 0.92 Est GFR ( Amer) > 60 Est GFR (Non-Af Amer) > 60 Glucose 74 L Calcium 9.1 Magnesium 1.8 Total Bilirubin 0.6 AST 49 ALT 39 Alkaline Phosphatase 99 Total Protein 6.4 Albumin 3.1 L 01/24/19 01/24/19 01/24/19 21:40 21:40 21:40 Creatine Kinase 60 CK-MB (CK-2) 0.60 Troponin I < 0.012 NT-Pro-B Natriuret Pep 01/25/19 23:25 Creatine Kinase CK-MB (CK-2) Troponin I NT-Pro-B Natriuret Pep 7710 H Impressions: Abdomen/Pelvis CT 01/25/19 00:26 IMPRESSION: Fluid overloaded state with pleural effusions, mild ascites as well as mild body wall anasarca. Head CT 01/25/19 00:26 IMPRESSION: No acute intracranial findings. Chest X-Ray 01/28/19 00:00 IMPRESSION: Small bilateral pleural effusions new from prior radiographs. Tibia/Fibula X-Ray 01/28/19 00:00 IMPRESSION: NEGATIVE STUDY OF THE RIGHT TIBIA AND FIBULA. NO RADIOGRAPHIC EVIDENCE OF ACUTE INJURY. Assessment and Plan - Diagnosis (1) Meningitis Is this a current diagnosis for this admission?: Yes Plan: with increased opening pressure, dexamethasone, vancomycin, Rocephin initiated, follow-up CSF studies and blood culture 01/25/[id number]-grje-old male admitted for altered mental status LP as part of differential. On p.o. dexamethasone, IV vancomycin IV Rocephin. On examination 10 minutes ago patient is alert awake oriented able to give his date of able to tell me that he was in [facility]. CSF stain negative for bacteria and WBC. Blood cultures are positive for gram-positive cocci in [facility]. Plan is to continue the present management. 01/28/2019 patient is presently on cefepime and vancomycin the CSF cultures came back negative. Meningitis is unlikely. Patient is alert awake oriented communicating very well. 01/29/2019-meningitis is ruled out. Patient is alert and awake oriented communicating well. Patient is presently on cefepime and vancomycin. The blood cultures from 01/24/2019 showing strep dysgalactiae plan is to continue the present antibiotic therapy. 01/30/2019-patient is admitted with altered mental status meningitis is in the differential LP was negative. Meningitis is ruled out. Until this morning he is on cefepime and vancomycin. T-max is 97.8. plan is to discontinue vancomycin today. (2) Cellulitis of right leg Is this a current diagnosis for this admission?: Yes Plan: 01/25/2019-patient is admitted with right lower leg cellulitis he was started on IV Rocephin and IV vancomycin blood culture positive for gram-positive cocci in chains. Waiting for the sensitivity report. Plan is to continue the present management in the meantime. 01/28/2019-patient was admitted with cellulitis of the lower leg extremity presently on IV cefepime and IV vancomycin the cultures came back positive for strep dysGalantiae plan is to continue the present management. 01/29/2019-patient is admitted with right lower extremity resolved. Patient is presently on IV cefepime and IV vancomycin for blood cultures that was positive for strep dysgalantiae and is to continue the present management. 01/30/2019-patient is admitted with cellulitis of the lower extremity. Currently on IV vancomycin and cefepime vancomycin is discontinued this morning. pt is afebrile for the last 48 hours. Patient is complaining of right lower leg pain especially in the calf region we going to do the ultrasound to rule out DVT. (3) Pleural effusion Is this a current diagnosis for this admission?: Yes Plan: 01/25/2019-patient was admitted with pleural effusion and a CT scan shows fluid overload with pleural effusions and mild ascites as well as mild body wall anasarca. Because of pleural effusion is unknown. Patient is hypotensive on pressors at this time. Patient is given the history of heavy alcohol use several years ago may be has liver failure with ascites and pleural effusions. 01/28/2019-initial CT scan shows fluid overload with pleural effusions and mild ascites as well as mild body wall anasarca. These findings are most likely secondary to liver failure. plan is to repeat the x-ray today. 01/29/2019 chest x-ray done yesterday shows small pleural effusions. His Lasix was started back on yesterday. Patient pulse ox is 95% on 2 L. Asymptomatic. Plan is to continue the present management. 01/30/2019-latest chest x-ray shows small pleural effusions patient is presently on Lasix 80 mg p.o. daily pulse ox is 95% on 3 L asymptomatic plan is to continue the present management. (4) Severe sepsis Is this a current diagnosis for this admission?: Yes Plan: Likely secondary to #1 or 2. IV fluid challenge, Levophed as needed 01/25/2019-patient was admitted severe sepsis with acute kidney injury baseline creatinine is 1.09 it was not 1.74. He is on IV pressors. Chest x-ray shows fluid overload with pleural effusions and ascites. Unable to give IV fluids because of the concerns about fluid overload worsening. Lactic acid on admission is 1.3. 01/28/2019 patient was admitted with septic shock was treated with IV antibiotics and IV fluids blood pressure today is 148/72 temperature 97.6, septic shock is resolved. Blood cultures are positive for strep dysgalactiae. 01/29/2019-patient is admitted with septic shock latest blood pressure is 110/61 he is back on his antihypertensive medications including Lasix patient is asymptomatic septic shock is resolved. 01/30/2019-patient is admitted with septic shock which was resolved, blood pressure today is 98/52 requested nurse to check the manual blood pressure. Patient is presently on cefepime and vancomycin vancomycin was discontinued this morning patient is afebrile for the last 72 hours. (5) Hyperkalemia Is this a current diagnosis for this admission?: Yes Plan: 01/25/2019-patient's latest potassium level is 4.7 on admission it is 5.8. Hyperkalemia is resolving. 01/28/2019-on admission patient potassium so was her elevated. Latest potassium level is 5.0 plan is to recheck his chemistry tomorrow. 01/29/2019-patient potassium level today is 4.2 hyperkalemia is resolved. 01/30/2019-patient's potassium level is 4.2 hyperkalemia is resolved. (6) Acute kidney failure Is this a current diagnosis for this admission?: Yes Plan: 01/25/2019-base line 1.08 ,,on admission it is 1.74 due to sepsis, may be due to prerenal causes. Plan is to closely monitor the creatinine levels. 01/28/2019 patient's baseline creatinine is around 1.09 today it is 1.55 acute kidney injury secondary to sepsis is resolving. Plan is to repeat the labs simon orrow. 01/29/2019-patient's baseline creatinine is around 1.09 yesterday it was 1.55 it was improved to 0.84 today acute kidney injury most likely due to prerenal causes resolved. 01/30/2019-patient's admission creatinine is 1.09 today it was 0.92 acute kidney injury due to prerenal causes resolved. - Time Time Spent with patient: 15-24 minutes Smoking Cessation Education: over 10 minutes Medications reviewed and adjusted accordingly: Yes Anticipated discharge: SNF
[2019-01-30] MEDS: INSULIN LISPRO 100 UNIT/ML 3 ML VIAL SUBCUT SCH ×4 (09:34→22:07)
--- NOTE | 2019-01-30 09:37 | RADIOLOGY REPORT (SQ) ---
EXAM DESCRIPTION: VENOUS UNILATERAL LOWER COMPLETED DATE/TIME: 01/30/2019 9:27 am REASON FOR STUDY: rt lower leg swelling and pain COMPARISON: None. TECHNIQUE: Dynamic and static miller scale and color images acquired of the right leg venous system. S elected spectral images acquired with additional compression and augmentation maneuvers. The contrala teral common femoral vein and saphenofemoral junction were also imaged. Images stored on PACS. LIMITATIONS: Patient declined contralateral imaging. FINDINGS: COMMON FEMORAL: Normal phasicity, compression and augmentation. No visualized echogenic ma terial on miller scale. No defects on color images. FEMORAL: Normal compression and augmentation. No visualized echogenic material on miller scale. No defe cts on color images. POPLITEAL: Normal compression, augmentation. No visualized echogenic material on miller scale. No defec ts on color images. CALF VESSELS: Normal compression, augmentation. No visualized echogenic material on miller scale. No de fects on color images. GSV and SSV: Normal compression, augmentation. No visualized echogenic material on miller scale. No def ects on color images. ANY DEEP VENOUS INSUFFICIENCY: Not evaluated. ANY EVIDENCE OF POPLITEAL CYST: No. OTHER: No other significant finding. CONTRALATERAL COMMON FEMORAL VEIN AND SAPHENOFEMORAL JUNCTION: Not obtained. IMPRESSION: NO EVIDENCE DVT OR SVT IN THE RIGHT LEG. TECHNICAL DOCUMENTATION: JOB ID: [id number] [employer]- All Rights Reserved Reading location - IP/workstation name: [email or web address]
[2019-01-30] MEDS: DONEPEZIL HCL 5 MG TABLET PO SCH ×2 (09:56→18:05)
[2019-01-30] MEDS: METOPROLOL TARTRATE 25 MG TABLET PO SCH ×2 (09:56→21:09)
[2019-01-30] MEDS: MODAFINIL 100 MG TABLET PO SCH (09:56)
[2019-01-30] MEDS: CYANOCOBALAMIN (VITAMIN B-12) INJ 1000 MCG/1 ML VIAL IM SCH (09:57)
[2019-01-30] MEDS: CETIRIZINE 10 MG TABLET PO SCH (09:57)
[2019-01-30] MEDS: FUROSEMIDE 80 MG TABLET PO SCH (09:57)
[2019-01-30] MEDS: GLIPIZIDE 10 MG TABLET PO SCH ×2 (09:57→21:09)
[2019-01-30] MEDS: FOLIC ACID 1 MG in NORMAL SALINE 250 ML IV SCH (18:05)
[2019-01-30] MEDS: OXYCODONE-ACETAMINOPHEN 5-325 MG TABLET PO PRN (21:09)
[2019-01-30] MEDS: SERTRALINE HCL 50 MG TABLET PO SCH (21:09)
[2019-01-30] MEDS: ERYTHROMYCIN 0.5% OPH OINT 1 GM UNIT DOSE OU SCH (21:10)
[2019-01-30] MEDS: CEFTRIAXONE 1 GM/D5W RTU 1 GM/50 ML RTUPB IV SCH (21:10)
[2019-01-31] MEDS: HEPARIN SOD (PORCINE) 5,000 UNIT/ML 1 ML SYRINGE SUBCUT SCH ×3 (05:06→22:00)
[2019-01-31 05:24] LABS: ABSOLUTE EOSINOPHILS # (AUTO) 0.1 10^3/uL (0.0-0.6); ABSOLUTE LYMPHOCYTES (AUTO) 0.8 10^3/uL (0.5-4.7); ABSOLUTE MONOCYTES (AUTO) 1.3 10^3/uL (0.1-1.4); ABSOLUTE NEUT (AUTO) 6.6 10^3/uL (1.7-8.2); BASOPHILS % (AUTO) 0.2 % (0-2); EOSINOPHILS % (AUTO) 1.1 % (0-6); HEMATOCRIT 35.3 % (37.9-51.0); HEMOGLOBIN 12.2 g/dL (13.5-17.0); LYMPHOCYTES % (AUTO) 8.7 % (13-45); MEAN CORPUSCULAR HEMOGLOBIN 34.7 pg (27.0-33.4); MEAN CORPUSCULAR HGB CONC 34.5 g/dL (32.0-36.0); MEAN CORPUSCULAR VOLUME 100 fl (80-97); MONOCYTES % (AUTO) 14.5 % (3-13); PLATELET COUNT 122 10^3/uL (150-450); RED BLOOD COUNT 3.51 10^6/uL (4.35-5.55); RED CELL DISTRIBUTION WIDTH 15.1 % (11.5-14.0); SEGMENTED NEUTROPHILS % (AUTO) 75.5 % (42-78); TOTAL CELLS COUNTED % (AUTO) 100 %; WHITE BLOOD COUNT 8.7 10^3/uL (4.0-10.5)
[2019-01-31 05:53] LABS: ALANINE AMINOTRANSFERASE 35 U/L (21-72); ALBUMIN 3.2 g/dL (3.5-5.0); ALKALINE PHOSPHATASE 113 U/L (38-126); ANION GAP 11 (5-19); ASPARTATE AMINO TRANSFERASE 37 U/L (17-59); BILIRUBIN,DIRECT 0.3 mg/dL (0.0-0.4); BILIRUBIN,TOTAL 1.1 mg/dL (0.2-1.3); BLOOD UREA NITROGEN 34 mg/dL (7-20); CALCIUM 8.8 mg/dL (8.4-10.2); CARBON DIOXIDE 26 mmol/L (22-30); CHLORIDE 99 mmol/L (98-107); GLUCOSE 111 mg/dL (75-110); POTASSIUM 4.4 mmol/L (3.6-5.0); SODIUM 135.6 mmol/L (137-145); TOTAL PROTEIN 6.5 g/dL (6.3-8.2)
[2019-01-31] MEDS: IPRATROPIUM/ALBUTEROL 0.5-2.5 MG/3 ML AMPUL NEB SCH ×3 (07:46→23:55)
[2019-01-31] MEDS: INSULIN LISPRO 100 UNIT/ML 3 ML VIAL SUBCUT SCH ×4 (08:31→22:00)
[2019-01-31] MEDS: MODAFINIL 100 MG TABLET PO SCH (08:44)
[2019-01-31] MEDS: OXYCODONE-ACETAMINOPHEN 5-325 MG TABLET PO PRN ×2 (09:23→22:05)
[2019-01-31] MEDS: METOPROLOL TARTRATE 25 MG TABLET PO SCH ×2 (09:24→21:59)
[2019-01-31] MEDS: DONEPEZIL HCL 5 MG TABLET PO SCH ×2 (09:24→17:35)
[2019-01-31] MEDS: GLIPIZIDE 10 MG TABLET PO SCH ×2 (09:24→21:59)
[2019-01-31] MEDS: CETIRIZINE 10 MG TABLET PO SCH (09:24)
[2019-01-31] MEDS: FUROSEMIDE 80 MG TABLET PO SCH (09:24)
[2019-01-31] MEDS: CYANOCOBALAMIN (VITAMIN B-12) INJ 1000 MCG/1 ML VIAL IM SCH (09:26)
--- NOTE | 2019-01-31 09:36 | PDOC PROGRESS REPORT ---
Subjective Progress Note for:: 01/31/19 Subjective:: 78 year old male with an extensive past medical history of COPD, congestive heart failure, coronary artery disease status post remote bypass grafting, hypertension and advanced dementia who requires assistance with feeding at baseline. He presents with his after the abrupt onset of vomiting of gastric contents x1, fever with altered mental status from baseline. Patient has chronic cellulitis of the right leg without antibiotics there are no new medications initiated patient is otherwise felt well in the emergency room is found to have septic shock with hypotension, fever, hyperkalemia chest x-ray revealing bilateral pleural effusion without infiltrate, LP reveals increased opening pressure, right leg is hot and erythemic with several open excoriations without exudate. He started on vancomycin, Rocephin and referred to the hospitalist for admission. denies recent rash or tick bite Patient verifies CODE STATUS is full code 01/25/2019-pt is comfortably in bed communicating well not in disress.still hypotensive on neonynephrine.denies any problems. 01/28/2019 patient is comfortably in the bed complaining of right lower leg pain on gentle palpation is jumped in pain we going to arrange for the x-ray of the right tibia and fibula. Patient is afebrile. No acute events in the last 24 hours. 01/29/2019 patient is comfortably in the bed complaining of back pain he has this chronic back pains he is using brace at home but he does not want any pain medications here I am going to order for the K pad for him. No acute events in the last 24 hours. X-ray of the right lower extremity came back negative for fractures. Patient's had a discussion with the social psychologist she wanted her to go to a rehab facility her preferences [facility]. 01/30/2019-no acute events in the last 24 hours. Patient is afebrile. Compla ining of right lower leg pain especially in cough area. On gentle touch is jumping and pain. We going to do the DVT studies. To start him on Percocet 1 tablet every 4 hours as needed for pain. BP is 98/52 I requested the nurse to check the manual blood pressure. Patient's prefer to [facility] care home placement waiting for the bed availability. 01/31/2019-no acute events in the last 24 hours. Patient is afebrile. Patient is still complaining of right lower leg pain. He is getting Percocet 1 tablet every 4 as needed DVT studies are negative for blood clots and x-rays are negati ve for fractures. I am going to put him on gabapentin 300 mg at bedtime. Pulse ox is 98% -99% on room air. Patient was accepted [facility] waiting for the bed. Reason For Visit: ACUTE ENCEPHALOPATHY, DEMENTIA, FEVER, HYPERKALEMI Physical Exam Vital Signs: Temp Pulse Resp BP Pulse Ox 98.6 F 66 18 100/47 L 99 01/31/19 04:07 01/31/19 07:46 01/31/19 07:46 01/31/19 04:07 01/31/19 07:46 Intake & Output 01/30/19 01/31/19 02/01/19 06:59 06:59 06:59 Intake Total 2305.2 1023.2 Output Total 5200 2675 Balance -2894.8 -1651.8 Weight 96.6 kg 90.1 kg General appearance: PRESENT: no acute distress Head exam: PRESENT: atraumatic Eye exam: PRESENT: PERRLA Teeth exam: PRESENT: poor dentation Neck exam: ABSENT: carotid bruit, JVD, lymphadenopathy, thyromegaly Respiratory exam: PRESENT: decreased breath sounds Cardiovascular exam: PRESENT: systolic murmur, tachycardia GI/Abdominal exam: PRESENT: normal bowel sounds, soft. ABSENT: distended, guarding, mass, organolmegaly, rebound, tenderness Extremities exam: PRESENT: full ROM. ABSENT: calf tenderness, clubbing, pedal edema Neurological exam: PRESENT: alert, awake, oriented to person, oriented to place, oriented to time, oriented to situation, CN II-XII grossly intact. ABSENT: motor sensory deficit Psychiatric exam: PRESENT: appropriate affect, normal mood. ABSENT: homicidal ideation, suicidal ideation Results Laboratory Results: 01/31/19 04:23 01/31/19 04:23 01/31/19 01/31/19 04:23 04:23 WBC 8.7 RBC 3.51 L Hgb 12.2 L Hct 35.3 L MCV 100 H MCH 34.7 H MCHC 34.5 RDW 15.1 H Plt Count 122 L Seg Neutrophils % 75.5 Lymphocytes % 8.7 L Monocytes % 14.5 H Eosinophils % 1.1 Basophils % 0.2 Absolute Neutrophils 6.6 Absolute Lymphocytes 0.8 Absolute Monocytes 1.3 Absolute Eosinophils 0.1 Absolute Basophils 0.0 Sodium 135.6 L Potassium 4.4 Chloride 99 Carbon Dioxide 26 Anion Gap 11 BUN 34 H Creatinine 0.95 Est GFR ( Amer) > 60 Est GFR (Non-Af Amer) > 60 Glucose 111 H Calcium 8.8 Magnesium 1.8 Total Bilirubin 1.1 AST 37 ALT 35 Alkaline Phosphatase 113 Total Protein 6.5 Albumin 3.2 L 01/25/19 08:35 Blood Blood Culture - Final NO GROWTH IN 5 DAYS 01/24/19 01/24/19 01/24/19 21:40 21:40 21:40 Creatine Kinase 60 CK-MB (CK-2) 0.60 Troponin I < 0.012 NT-Pro-B Natriuret Pep 01/25/19 23:25 Creatine Kinase CK-MB (CK-2) Troponin I NT-Pro-B Natriuret Pep 7710 H Impressions: Abdomen/Pelvis CT 01/25/19 00:26 IMPRESSION: Fluid overloaded state with pleural effusions, mild ascites as well as mild body wall anasarca. Head CT 01/25/19 00:26 IMPRESSION: No acute intracranial findings. Chest X-Ray 01/28/19 00:00 IMPRESSION: Small bilateral pleural effusions new from prior radiographs. Tibia/Fibula X-Ray 01/28/19 00:00 IMPRESSION: NEGATIVE STUDY OF THE RIGHT TIBIA AND FIBULA. NO RADIOGRAPHIC EVIDENCE OF ACUTE INJURY. Venous Doppler Study 01/30/19 00:00 IMPRESSION: NO EVIDENCE DVT OR SVT IN THE RIGHT LEG. Assessment and Plan - Diagnosis (1) Meningitis Is this a current diagnosis for this admission?: Yes Plan: with increased opening pressure, dexamethasone, vancomycin, Rocephin initiated, follow-up CSF studies and blood culture 01/[id number]-old male admitted for altered mental status LP as part of differential. On p.o. dexamethasone, IV vancomycin IV Rocephin. On examination 10 minutes ago patient is alert awake oriented able to give his date of able to tell me that he was in [facility]. CSF stain negative for bacteria and WBC. Blood cultures are positive for gram-positive cocci in chains. Plan is to continue the present management. 01/28/2019 patient is presently on cefepime and vancomycin the CSF cultures came back negative. Meningitis is unlikely. Patient is alert awake oriented commu nicating very well. 01/29/2019-meningitis is ruled out. Patient is alert and awake oriented communi cating well. Patient is presently on cefepime and vancomycin. The blood cultures from 01/24/2019 showing strep dysgalactiae plan is to continue the present antibiotic therapy. 01/30/2019-patient is admitted with altered mental status meningitis is in the differential LP was negative. Meningitis is ruled out. Until this morning he is on cefepime and vancomycin. T-max is 97.8. plan is to discontinue vancomycin today. 01/31/2019-patient was admitted with altered mental status, meningitis is in the high in the differential. Lumbar puncture came back negative. Meningitis is ruled out now. IV vancomycin is discontinued. Plan is to discontinue IV Rocephin today. (2) Cellulitis of right leg Is this a current diagnosis for this admission?: Yes Plan: 01/25/2019-patient is admitted with right lower leg cellulitis he was started on IV Rocephin and IV vancomycin blood culture positive for gram-positive cocci in chains. Waiting for the sensitivity report. Plan is to continue the present management in the meantime. 01/28/2019-patient was admitted with cellulitis of the lower leg extremity presently on IV cefepime and IV vancomycin the cultures came back positive for strep dysGalantiae plan is to continue the present management. 01/29/2019-patient is admitted with right lower extremity resolved. Patient is presently on IV cefepime and IV vancomycin for blood cultures that was positive for strep dysgalantiae and is to continue the present management. 01/30/2019-patient is admitted with cellulitis of the lower extremity. Currently on IV vancomycin and cefepime vancomycin is discontinued this morning. pt is afebrile for the last 48 hours. Patient is complaining of right lower leg pain especially in the calf region we going to do the ultrasound to rule out DVT. 01/31/2019 right lower leg cellulitis is resolving. Patient received IV vancomycin and IV ceftriaxone. Both antibiotics are discontinued now. X-rays are negative for fractures ultrasound of the right lower extremity negative for DVT. Patient is still complaining of right lower leg pain he is presently on Percocet 1 tablet every 4 as needed and started on gabapentin 300 mg at night. Patient is waiting for placement. Physical therapy is working with the patient pain. Patient is afebrile for the last several days T-max is 99.1 yesterday. (3) Pleural effusion Is this a current diagnosis for this admission?: Yes Plan: 01/25/2019-patient was admitted with pleural effusion and a CT scan shows fluid overload with pleural effusions and mild ascites as well as mild body wall anasarca. Because of pleural effusion is unknown. Patient is hypotensive on pressors at this time. Patient is given the history of heavy alcohol use several years ago may be has liver failure with ascites and pleural effusions. 01/28/2019-initial CT scan shows fluid overload with pleural effusions and mild ascites as well as mild body wall anasarca. These findings are most likely s econdary to liver failure. plan is to repeat the x-ray today. 01/29/2019 chest x-ray done yesterday shows small pleural effusions. His Lasix was started back on yesterday. Patient pulse ox is 95% on 2 L. Asymptomatic. Plan is to continue the present management. 01/30/2019-latest chest x-ray shows small pleural effusions patient is presently on Lasix 80 mg p.o. daily pulse ox is 95% on 3 L asymptomatic plan is to continue the present management. 01/31/2019-patient is presently on Lasix 80 mg p.o. daily pulse ox is 97% on room air x-ray shows small pleural effusions patient is asymptomatic. These effusions may be secondary to history of alcoholic liver cirrhosis. (4) Severe sepsis Is this a current diagnosis for this admission?: Yes Plan: Likely secondary to #1 or 2. IV fluid challenge, Levophed as needed 01/25/2019-patient was admitted severe sepsis with acute kidney injury baseline creatinine is 1.09 it was not 1.74. He is on IV pressors. Chest x-ray shows fluid overload with pleural effusions and ascites. Unable to give IV fluids because of the concerns about fluid overload worsening. Lactic acid on admission is 1.3. 01/28/2019 patient was admitted with septic shock was treated with IV antibiotics and IV fluids blood pressure today is 148/72 temperature 97.6, septic shock is resolved. Blood cultures are positive for strep dysgalactiae. 01/29/2019-patient is admitted with septic shock latest blood pressure is 110/61 he is back on his antihypertensive medications including Lasix patient is as ymptomatic septic shock is resolved. 01/30/2019-patient is admitted with septic shock which was resolved, blood pressure today is 98/52 requested nurse to check the manual blood pressure. Patient is presently on cefepime and vancomycin n was discontinued this morning patient is afebrile for the last 72 hours. 01/31/2019 septic shock is resolved blood pressure today 116/54. stable. Septic shock is resolved. pt is off the antibiotics from today. Patient is presently on metoprolol 25 mg every 12 hours and furosemide 80 mg p.o. daily. Plan is to continue the present management. (5) Hyperkalemia Is this a current diagnosis for this admission?: Yes Plan: 01/25/2019-patient's latest potassium level is 4.7 on admission it is 5.8. Hyperkalemia is resolving. 01/28/2019-on admission patient potassium so was her elevated. Latest potassium level is 5.0 plan is to recheck his chemistry tomorrow. 01/29/2019-patient potassium level today is 4.2 hyperkalemia is resolved. 01/30/2019-patient's potassium level is 4.2 hyperkalemia is resolved. 01/31/2019 latest potassium level is 4.4 hyperkalemia is resolved. (6) Acute kidney failure Is this a current diagnosis for this admission?: Yes Plan: 01/25/2019-base line 1.08 ,,on admission it is 1.74 due to sepsis, may be due to prerenal causes. Plan is to closely monitor the creatinine levels. 01/28/2019 patient's baseline creatinine is around 1.09 today it is 1.55 acute kidney injury secondary to sepsis is resolving. Plan is to repeat the labs tomorrow. 01/29/2019-patient's baseline creatinine is around 1.09 yesterday it was 1.55 it was improved to 0.84 today acute kidney injury most likely due to prerenal causes resolved. 01/30/2019-patient's admission creatinine is 1.09 today it was 0.92 acute kidney injury due to prerenal causes resolved. 01/31/2019-patient's admission creatinine is 1.09 today it is 0.95 acute kidney injury most likely secondary to prerenal causes resolved. - Time Time Spent with patient: 15-24 minutes Medications reviewed and adjusted accordingly: Yes Anticipated discharge: SNF
[2019-01-31] MEDS: FOLIC ACID 1 MG in NORMAL SALINE 250 ML IV SCH (17:35)
[2019-01-31] MEDS: SERTRALINE HCL 50 MG TABLET PO SCH (21:59)
[2019-01-31] MEDS: GABAPENTIN 300 MG CAPSULE PO SCH (21:59)
[2019-01-31] MEDS: ERYTHROMYCIN 0.5% OPH OINTMENT 3.5 GM TUBE OU SCH (22:02)
[2019-02-01] MEDS: HEPARIN SOD (PORCINE) 5,000 UNIT/ML 1 ML SYRINGE SUBCUT SCH ×3 (05:29→22:05)
[2019-02-01 06:08] LABS: ABSOLUTE EOSINOPHILS # (AUTO) 0.1 10^3/uL (0.0-0.6); ABSOLUTE LYMPHOCYTES (AUTO) 0.7 10^3/uL (0.5-4.7); ABSOLUTE MONOCYTES (AUTO) 1.2 10^3/uL (0.1-1.4); ABSOLUTE NEUT (AUTO) 7.2 10^3/uL (1.7-8.2); BASOPHILS % (AUTO) 0.3 % (0-2); EOSINOPHILS % (AUTO) 1.1 % (0-6); HEMATOCRIT 34.7 % (37.9-51.0); LYMPHOCYTES % (AUTO) 7.3 % (13-45); MEAN CORPUSCULAR HEMOGLOBIN 34.4 pg (27.0-33.4); MEAN CORPUSCULAR HGB CONC 34.4 g/dL (32.0-36.0); MEAN CORPUSCULAR VOLUME 100 fl (80-97); MONOCYTES % (AUTO) 13.4 % (3-13); PLATELET COUNT 121 10^3/uL (150-450); RED BLOOD COUNT 3.48 10^6/uL (4.35-5.55); RED CELL DISTRIBUTION WIDTH 15.2 % (11.5-14.0); SEGMENTED NEUTROPHILS % (AUTO) 77.9 % (42-78); TOTAL CELLS COUNTED % (AUTO) 100 %; WHITE BLOOD COUNT 9.3 10^3/uL (4.0-10.5)
[2019-02-01 06:57] LABS: ALANINE AMINOTRANSFERASE 34 U/L (21-72); ALBUMIN 3.1 g/dL (3.5-5.0); ALKALINE PHOSPHATASE 105 U/L (38-126); ANION GAP 12 (5-19); ASPARTATE AMINO TRANSFERASE 26 U/L (17-59); BILIRUBIN,DIRECT 0.4 mg/dL (0.0-0.4); BILIRUBIN,TOTAL 1.3 mg/dL (0.2-1.3); BLOOD UREA NITROGEN 41 mg/dL (7-20); CALCIUM 8.7 mg/dL (8.4-10.2); CARBON DIOXIDE 24 mmol/L (22-30); CHLORIDE 97 mmol/L (98-107); GLUCOSE 109 mg/dL (75-110); POTASSIUM 4.2 mmol/L (3.6-5.0); SODIUM 133.1 mmol/L (137-145); TOTAL PROTEIN 6.6 g/dL (6.3-8.2)
[2019-02-01] MEDS: IPRATROPIUM/ALBUTEROL 0.5-2.5 MG/3 ML AMPUL NEB SCH ×2 (08:11→16:10)
[2019-02-01] MEDS: INSULIN LISPRO 100 UNIT/ML 3 ML VIAL SUBCUT SCH ×4 (09:29→22:02)
[2019-02-01] MEDS: MODAFINIL 100 MG TABLET PO SCH (09:34)
[2019-02-01] MEDS: DONEPEZIL HCL 5 MG TABLET PO SCH ×2 (09:35→17:12)
[2019-02-01] MEDS: GLIPIZIDE 10 MG TABLET PO SCH ×2 (09:35→22:01)
[2019-02-01] MEDS: METOPROLOL TARTRATE 25 MG TABLET PO SCH ×2 (09:36→22:04)
[2019-02-01] MEDS: FUROSEMIDE 80 MG TABLET PO SCH (09:36)
[2019-02-01] MEDS: CETIRIZINE 10 MG TABLET PO SCH (09:36)
[2019-02-01] MEDS: CYANOCOBALAMIN (VITAMIN B-12) INJ 1000 MCG/1 ML VIAL IM SCH (09:37)
--- NOTE | 2019-02-01 11:58 | PDOC PROGRESS REPORT ---
Subjective Progress Note for:: 02/01/19 Subjective:: 78 year old male with an extensive past medical history of COPD, congestive heart failure, coronary artery disease status post remote bypass grafting, hypertension and advanced dementia who requires assistance with feeding at baseline. He presents with his after the abrupt onset of vomiting of gastric contents x1, fever with altered mental status from baseline. Patient has chronic cellulitis of the right leg without antibiotics there are no new medications initiated patient is otherwise felt well in the emergency room is found to have septic shock with hypotension, fever, hyperkalemia chest x-ray revealing bilateral pleural effusion without infiltrate, LP reveals increased opening pressure, right leg is hot and erythemic with several open excoriations without exudate. He started on vancomycin, Rocephin and referred to the hospitalist for admission. denies recent rash or tick bite Patient verifies CODE STATUS is full code 01/25/2019-pt is comfortably in bed communicating well not in disress.still hypotensive on neonynephrine.denies any problems. 01/28/2019 patient is comfortably in the bed complaining of right lower leg pain on gentle palpation is jumped in pain we going to arrange for the x-ray of the right tibia and fibula. Patient is afebrile. No acute events in the last 24 hours. 01/29/2019 patient is comfortably in the bed complaining of back pain he has this chronic back pains he is using brace at home but he does not want any pain medications here I am going to order for the K pad for him. No acute events in the last 24 hours. X-ray of the right lower extremity came back negative for fractures. Patient's had a discussion with the pediatric social worker she wanted her to go to a rehab facility her preferences [facility]. 01/30/2019-no acute events in the last 24 hours. Patient is afebrile. Compla ining of right lower leg pain especially in cough area. On gentle touch is jumping and pain. We going to do the DVT studies. To start him on Percocet 1 tablet every 4 hours as needed for pain. BP is 98/52 I requested the nurse to check the manual blood pressure. Patient's prefer to [facility] skilled nursing placement waiting for the bed availability. 01/31/2019-no acute events in the last 24 hours. Patient is afebrile. Patient is still complaining of right lower leg pain. He is getting Percocet 1 tablet every 4 as needed DVT studies are negative for blood clots and x-rays are negati ve for fractures. I am going to put him on gabapentin 300 mg at bedtime. Pulse ox is 98% -99% on room air. Patient was accepted [facility] waiting for the bed. 02/01/2019 discharge plans were made for the patient to go to [facility] today. But the is concerned about right lower leg swelling and redness she requested me to reexamine the patient. On examination right lower extremity was swollen compared to the left lower extremity and the erythema is present increased warmth is present so I requested for a blood cultures and started on IV vancomycin and clindamycin. Recent x-rays of the right lower extremity negative for fractures recent DVT studies are negative for blood clots. Reason For Visit: ACUTE ENCEPHALOPATHY, DEMENTIA, FEVER, HYPERKALEMI Physical Exam Vital Signs: Temp Pulse Resp BP Pulse Ox 98.6 F 66 16 107/51 L 95 02/01/19 07:56 02/01/19 08:12 02/01/19 08:12 02/01/19 07:56 02/01/19 08:12 Intake & Output 01/31/19 02/01/19 02/02/19 06:59 06:59 06:59 Intake Total 1023.2 1022.2 Output Total 2675 1740 Balance -1651.8 -717.8 Weight 90.1 kg 91.3 kg General appearance: PRESENT: mild distress Head exam: PRESENT: atraumatic Eye exam: PRESENT: PERRLA Neck exam: ABSENT: carotid bruit, JVD, lymphadenopathy, thyromegaly Respiratory exam: PRESENT: clear to auscultation genrao. ABSENT: rales, rhonchi, wheezes Cardiovascular exam: PRESENT: RRR. ABSENT: diastolic murmur, rubs, systolic murmur GI/Abdominal exam: PRESENT: normal bowel sounds, soft. ABSENT: distended, guarding, mass, organolmegaly, rebound, tenderness Extremities exam: PRESENT: full ROM, other - Right lower extremity was swollen erythematous warm to touch.. ABSENT: calf tenderness, clubbing, pedal edema Neurological exam: PRESENT: alert, awake, oriented to person, oriented to place, oriented to time, oriented to situation, CN II-XII grossly intact. ABSENT: motor sensory deficit Psychiatric exam: PRESENT: appropriate affect, normal mood. ABSENT: homicidal ideation, suicidal ideation Results Laboratory Results: 02/01/19 04:48 02/01/19 04:48 02/01/19 02/01/19 04:48 04:48 WBC 9.3 RBC 3.48 L Hgb 12.0 L Hct 34.7 L MCV 100 H MCH 34.4 H MCHC 34.4 RDW 15.2 H Plt Count 121 L Seg Neutrophils % 77.9 Lymphocytes % 7.3 L Monocytes % 13.4 H Eosinophils % 1.1 Basophils % 0.3 Absolute Neutrophils 7.2 Absolute Lymphocytes 0.7 Absolute Monocytes 1.2 Absolute Eosinophils 0.1 Absolute Basophils 0.0 Sodium 133.1 L Potassium 4.2 Chloride 97 L Carbon Dioxide 24 Anion Gap 12 BUN 41 H Creatinine 0.99 Est GFR ( Amer) > 60 Est GFR (Non-Af Amer) > 60 Glucose 109 Calcium 8.7 Magnesium 2.0 Total Bilirubin 1.3 AST 26 ALT 34 Alkaline Phosphatase 105 Total Protein 6.6 Albumin 3.1 L 01/24/19 01/24/19 01/24/19 21:40 21:40 21:40 Creatine Kinase 60 CK-MB (CK-2) 0.60 Troponin I < 0.012 NT-Pro-B Natriuret Pep 01/25/19 23:25 Creatine Kinase CK-MB (CK-2) Troponin I NT-Pro-B Natriuret Pep 7710 H Impressions: Abdomen/Pelvis CT 01/25/19 00:26 IMPRESSION: Fluid overloaded state with pleural effusions, mild ascites as well as mild body wall anasarca. Head CT 01/25/19 00:26 IMPRESSION: No acute intracranial findings. Chest X-Ray 01/28/19 00:00 IMPRESSION: Small bilateral pleural effusions new from prior radiographs. Tibia/Fibula X-Ray 01/28/19 00:00 IMPRESSION: NEGATIVE STUDY OF THE RIGHT TIBIA AND FIBULA. NO RADIOGRAPHIC EVIDENCE OF ACUTE INJURY. Venous Doppler Study 01/30/19 00:00 IMPRESSION: NO EVIDENCE DVT OR SVT IN THE RIGHT LEG. Assessment and Plan - Diagnosis (1) Meningitis Is this a current diagnosis for this admission?: Yes Plan: with increased opening pressure, dexamethasone, vancomycin, Rocephin initiated, follow-up CSF studies and blood culture 01/[id number]-old male admitted for altered mental status LP as part of differential. On p.o. dexamethasone, IV vancomycin IV Rocephin. On examination 10 minutes ago patient is alert awake oriented able to give his date of able to tell me that he was in [facility]. CSF stain negative for bacteria and WBC. Blood cultures are positive for gram-positive cocci in chains. Plan is to continue the present management. 01/28/2019 patient is presently on cefepime and vancomycin the CSF cultures came back negative. Meningitis is unlikely. Patient is alert awake oriented communicating very well. 01/29/2019-meningitis is ruled out. Patient is alert and awake oriented communicating well. Patient is presently on cefepime and vancomycin. The blood cultures from 01/24/2019 showing strep dysgalactiae plan is to continue the present antibiotic therapy. 01/30/2019-patient is admitted with altered mental status meningitis is in the differential LP was negative. Meningitis is ruled out. Until this morning he is on cefepime and vancomycin. T-max is 97.8. plan is to discontinue vancomycin today. 01/31/2019-patient was admitted with altered mental status, meningitis is in the high in the differential. Lumbar puncture came back negative. Meningitis is ruled out now. IV vancomycin is discontinued. Plan is to discontinue IV Rocephin today. 02/01/2019 meningitis is resolved. (2) Cellulitis of right leg Is this a current diagnosis for this admission?: Yes Plan: 01/25/2019-patient is admitted with right lower leg cellulitis he was started on IV Rocephin and IV vancomycin blood culture positive for gram-positive cocci in chains. Waiting for the sensitivity report. Plan is to continue the present management in the meantime. 01/28/2019-patient was admitted with cellulitis of the lower leg extremity presently on IV cefepime and IV vancomycin the cultures came back positive for strep dysGalantiae plan is to continue the present management. 01/29/2019-patient is admitted with right lower extremity resolved. Patient is presently on IV cefepime and IV vancomycin for blood cultures that was positive for strep dysgalantiae and is to continue the present management. 01/30/2019-patient is admitted with cellulitis of the lower extremity. Currently on IV vancomycin and cefepime vancomycin is discontinued this morning. pt is afebrile for the last 48 hours. Patient is complaining of right lower leg pain especially in the calf region we going to do the ultrasound to rule out DVT. 01/31/2019 right lower leg cellulitis is resolving. Patient received IV vancomycin and IV ceftriaxone. Both antibiotics are discontinued now. X-rays are negative for fractures ultrasound of the right lower extremity negative for DVT. Patient is still complaining of right lower leg pain he is presently on Percocet 1 tablet every 4 as needed and started on gabapentin 300 mg at night. Patient is waiting for placement. Physical therapy is working with the patient pain. Patient is afebrile for the last several days T-max is 99.1 yesterday. 02/01/2019 on examination today the right lower leg was swollen compared to the left leg increased erythema increased warmth on touch blood cultures are requested patient started on IV vancomycin and IV clindamycin today. Discharge to [facility] is canceled. Recent x-rays of the lower right lower extremity and DVT studies are negative for acute changes. (3) Pleural effusion Is this a current diagnosis for this admission?: Yes Plan: 01/25/2019-patient was admitted with pleural effusion and a CT scan shows fluid overload with pleural effusions and mild ascites as well as mild body wall anasarca. Because of pleural effusion is unknown. Patient is hypotensive on pressors at this time. Patient is given the history of heavy alcohol use several years ago may be has liver failure with ascites and pleural effusions. 01/28/2019-initial CT scan shows fluid overload with pleural effusions and mild ascites as well as mild body wall anasarca. These findings are most likely secondary to liver failure. plan is to repeat the x-ray today. 01/29/2019 chest x-ray done yesterday shows small pleural effusions. His Lasix was started back on yesterday. Patient pulse ox is 95% on 2 L. Asymptomatic. Plan is to continue the present management. 01/30/2019-latest chest x-ray shows small pleural effusions patient is presently on Lasix 80 mg p.o. daily pulse ox is 95% on 3 L asymptomatic plan is to continue the present management. 01/31/2019-patient is presently on Lasix 80 mg p.o. daily pulse ox is 97% on room air x-ray shows small pleural effusions patient is asymptomatic. These effusions may be secondary to history of alcoholic liver cirrhosis. 02/01/2019-patient is presently on furosemide 80 mg p.o. daily and pulse oxes 95% on 2 L chest x-ray showing small bilateral pleural effusions most likely secondary to history of alcohol liver disease. Plan is to continue the present management. (4) Severe sepsis Is this a current diagnosis for this admission?: Yes Plan: Likely secondary to #1 or 2. IV fluid challenge, Levophed as needed 01/25/2019-patient was admitted severe sepsis with acute kidney injury baseline creatinine is 1.09 it was not 1.74. He is on IV pressors. Chest x-ray shows fluid overload with pleural effusions and ascites. Unable to give IV fluids because of the concerns about fluid overload worsening. Lactic acid on admission is 1.3. 01/28/2019 patient was admitted with septic shock was treated with IV antibiotics and IV fluids blood pressure today is 148/72 temperature 97.6, septic shock is resolved. Blood cultures are positive for strep dysgalactiae. 01/29/2019-patient is admitted with septic shock latest blood pressure is 110/61 he is back on his antihypertensive medications including Lasix patient is asymptomatic septic shock is resolved. 01/30/2019-patient is admitted with septic shock which was resolved, blood pressure today is 98/52 requested nurse to check the manual blood pressure. Patient is presently on cefepime and vancomycin n was discontinued this morning patient is afebrile for the last 72 hours. 01/31/2019 septic shock is resolved blood pressure today 116/54. stable. Septic shock is resolved. pt is off the antibiotics from today. Patient is presently on metoprolol 25 mg every 12 hours and furosemide 80 mg p.o. daily. Plan is to continue the present management. 02/01/2019-sepsis is resolved. (5) Hyperkalemia Is this a current diagnosis for this admission?: Yes (6) Acute kidney failure Is this a current diagnosis for this admission?: Yes Plan: 01/25/2019-base line 1.08 ,,on admission it is 1.74 due to sepsis, may be due to prerenal causes. Plan is to closely monitor the creatinine levels. 01/28/2019 patient's baseline creatinine is around 1.09 today it is 1.55 acute kidney injury secondary to sepsis is resolving. Plan is to repeat the labs tomorrow. 01/29/2019-patient's baseline creatinine is around 1.09 yesterday it was 1.55 it was improved to 0.84 today acute kidney injury most likely due to prerenal causes resolved. 01/30/2019-patient's admission creatinine is 1.09 today it was 0.92 acute kidney injury due to prerenal causes resolved. 01/31/2019-patient's admission creatinine is 1.09 today it is 0.95 acute kidney injury most likely secondary to prerenal causes resolved. 02/01/2019-patient's admission creatinine is 1.74 his baseline creatinine is around 1.09 today's creatinine is 0.99 acute kidney injury due to ATN secondary to prerenal causes resolved.
[2019-02-01] MEDS: CLINDAMYCIN 600 MG/D5W RTU 600 MG/50 ML RTUPB IV SCH ×2 (14:48→22:18)
[2019-02-01] MEDS: FOLIC ACID 1 MG in NORMAL SALINE 250 ML IV SCH (17:12)
[2019-02-01] MEDS: VANCOMYCIN HCL 750 MG in DEXTROSE 5%-WATER 250 ML IV SCH (17:20)
[2019-02-01] MEDS: ERYTHROMYCIN 0.5% OPH OINTMENT 3.5 GM TUBE OU SCH (22:01)
[2019-02-01] MEDS: GABAPENTIN 300 MG CAPSULE PO SCH (22:01)
[2019-02-01] MEDS: SERTRALINE HCL 50 MG TABLET PO SCH (22:01)
[2019-02-02] MEDS: IPRATROPIUM/ALBUTEROL 0.5-2.5 MG/3 ML AMPUL NEB SCH ×3 (00:04→15:46)
[2019-02-02 04:21] LABS: ABSOLUTE EOSINOPHILS # (AUTO) 0.1 10^3/uL (0.0-0.6); ABSOLUTE LYMPHOCYTES (AUTO) 0.6 10^3/uL (0.5-4.7); ABSOLUTE MONOCYTES (AUTO) 1.1 10^3/uL (0.1-1.4); ABSOLUTE NEUT (AUTO) 8.6 10^3/uL (1.7-8.2); BASOPHILS % (AUTO) 0.3 % (0-2); HEMATOCRIT 34.1 % (37.9-51.0); HEMOGLOBIN 11.6 g/dL (13.5-17.0); LYMPHOCYTES % (AUTO) 5.7 % (13-45); MEAN CORPUSCULAR HEMOGLOBIN 34.3 pg (27.0-33.4); MEAN CORPUSCULAR VOLUME 101 fl (80-97); MONOCYTES % (AUTO) 10.9 % (3-13); PLATELET COUNT 128 10^3/uL (150-450); RED BLOOD COUNT 3.38 10^6/uL (4.35-5.55); RED CELL DISTRIBUTION WIDTH 15.3 % (11.5-14.0); SEGMENTED NEUTROPHILS % (AUTO) 82.1 % (42-78); TOTAL CELLS COUNTED % (AUTO) 100 %; WHITE BLOOD COUNT 10.5 10^3/uL (4.0-10.5)
[2019-02-02 04:55] LABS: ALANINE AMINOTRANSFERASE 33 U/L (21-72); ALKALINE PHOSPHATASE 113 U/L (38-126); ANION GAP 10 (5-19); ASPARTATE AMINO TRANSFERASE 30 U/L (17-59); BILIRUBIN,DIRECT 0.4 mg/dL (0.0-0.4); BILIRUBIN,TOTAL 1.1 mg/dL (0.2-1.3); BLOOD UREA NITROGEN 39 mg/dL (7-20); CALCIUM 8.5 mg/dL (8.4-10.2); CARBON DIOXIDE 26 mmol/L (22-30); CHLORIDE 96 mmol/L (98-107); POTASSIUM 3.9 mmol/L (3.6-5.0); TOTAL PROTEIN 6.4 g/dL (6.3-8.2)
[2019-02-02 04:58] LABS: GLUCOSE 60 mg/dL (75-110)
[2019-02-02] MEDS: VANCOMYCIN HCL 750 MG in DEXTROSE 5%-WATER 250 ML IV SCH ×2 (05:37→18:26)
[2019-02-02] MEDS: CLINDAMYCIN 600 MG/D5W RTU 600 MG/50 ML RTUPB IV SCH ×3 (05:37→21:57)
[2019-02-02] MEDS: HEPARIN SOD (PORCINE) 5,000 UNIT/ML 1 ML SYRINGE SUBCUT SCH ×3 (05:38→21:52)
[2019-02-02] MEDS: MODAFINIL 100 MG TABLET PO SCH (08:23)
[2019-02-02] MEDS: INSULIN LISPRO 100 UNIT/ML 3 ML VIAL SUBCUT SCH ×4 (08:33→21:53)
--- NOTE | 2019-02-02 09:13 | PDOC PROGRESS REPORT ---
Subjective Progress Note for:: 02/02/19 Subjective:: 78 year old male with an extensive past medical history of COPD, congestive heart failure, coronary artery disease status post remote bypass grafting, hypertension and advanced dementia who requires assistance with feeding at baseline. He presents with his after the abrupt onset of vomiting of gastric contents x1, fever with altered mental status from baseline. Patient has chronic cellulitis of the right leg without antibiotics there are no new medications initiated patient is otherwise felt well in the emergency room is found to have septic shock with hypotension, fever, hyperkalemia chest x-ray revealing bilateral pleural effusion without infiltrate, LP reveals increased opening pressure, right leg is hot and erythemic with several open excoriations without exudate. He started on vancomycin, Rocephin and referred to the hospitalist for admission. denies recent rash or tick bite Patient verifies CODE STATUS is full code 01/25/2019-pt is comfortably in bed communicating well not in disress.still hypotensive on neonynephrine.denies any problems. 01/28/2019 patient is comfortably in the bed complaining of right lower leg pain on gentle palpation is jumped in pain we going to arrange for the x-ray of the right tibia and fibula. Patient is afebrile. No acute events in the last 24 hours. 01/29/2019 patient is comfortably in the bed complaining of back pain he has this chronic back pains he is using brace at home but he does not want any pain medications here I am going to order for the K pad for him. No acute events in the last 24 hours. X-ray of the right lower extremity came back negative for fractures. Patient's had a discussion with the director social welfare she wanted her to go to a rehab facility her preferences [facility]. 01/30/2019-no acute events in the last 24 hours. Patient is afebrile. Compla ining of right lower leg pain especially in cough area. On gentle touch is jumping and pain. We going to do the DVT studies. To start him on Percocet 1 tablet every 4 hours as needed for pain. BP is 98/52 I requested the nurse to check the manual blood pressure. Patient's prefer to [facility] senior living placement waiting for the bed availability. 01/31/2019-no acute events in the last 24 hours. Patient is afebrile. Patient is still complaining of right lower leg pain. He is getting Percocet 1 tablet every 4 as needed DVT studies are negative for blood clots and x-rays are negati ve for fractures. I am going to put him on gabapentin 300 mg at bedtime. Pulse ox is 98% -99% on room air. Patient was accepted [facility] waiting for the bed. 02/01/2019 discharge plans were made for the patient to go to [facility] today. But the is concerned about right lower leg swelling and redness she requested me to reexamine the patient. On examination right lower extremity was swollen compared to the left lower extremity and the erythema is present increased warmth is present so I requested for a blood cultures and started on IV vancomycin and clindamycin. Recent x-rays of the right lower extremity negative for fractures recent DVT studies are negative for blood clots. 01/05/2019-patient is complaining of pain in the lower extremity and moving. At rest he is denies any pain right lower leg is still swollen and erythematous. Blood cultures are negative so far. His temperature to 97.6 afebrile. WBC count is 10,500. Presently on IV vancomycin and mycin. Reason For Visit: ACUTE ENCEPHALOPATHY, DEMENTIA, FEVER, HYPERKALEMI Physical Exam Vital Signs: Temp Pulse Resp BP Pulse Ox 97.6 F 60 18 101/57 L 100 02/02/19 08:09 02/02/19 08:09 02/02/19 08:09 02/02/19 08:09 02/02/19 08:09 Intake & Output 02/01/19 02/02/19 02/03/19 06:59 06:59 06:59 Intake Total 1022.2 1211.2 250 Output Total 1740 1750 Balance -717.8 -538.8 250 Weight 91.3 kg 91.2 kg General appearance: PRESENT: mild distress Head exam: PRESENT: atraumatic Eye exam: PRESENT: PERRLA Mouth exam: PRESENT: moist, tongue midline Neck exam: ABSENT: carotid bruit, JVD, lymphadenopathy, thyromegaly Respiratory exam: PRESENT: decreased breath sounds Cardiovascular exam: PRESENT: tachycardia GI/Abdominal exam: PRESENT: normal bowel sounds, soft. ABSENT: distended, guarding, mass, organolmegaly, rebound, tenderness Neurological exam: PRESENT: alert, awake, oriented to person, oriented to place, oriented to time, oriented to situation, CN II-XII grossly intact. ABSENT: motor sensory deficit Psychiatric exam: PRESENT: appropriate affect, normal mood. ABSENT: homicidal ideation, suicidal ideation Results Laboratory Results: 02/02/19 03:33 02/02/19 03:33 02/02/19 02/02/19 03:33 03:33 WBC 10.5 RBC 3.38 L Hgb 11.6 L Hct 34.1 L MCV 101 H MCH 34.3 H MCHC 34.0 RDW 15.3 H Plt Count 128 L Seg Neutrophils % 82.1 H Lymphocytes % 5.7 L Monocytes % 10.9 Eosinophils % 1.0 Basophils % 0.3 Absolute Neutrophils 8.6 H Absolute Lymphocytes 0.6 Absolute Monocytes 1.1 Absolute Eosinophils 0.1 Absolute Basophils 0.0 Sodium 132.0 L Potassium 3.9 Chloride 96 L Carbon Dioxide 26 Anion Gap 10 BUN 39 H Creatinine 0.90 Est GFR ( Amer) > 60 Est GFR (Non-Af Amer) > 60 Glucose 60 L Calcium 8.5 Magnesium 2.1 Total Bilirubin 1.1 AST 30 ALT 33 Alkaline Phosphatase 113 Total Protein 6.4 Albumin 3.0 L 01/24/19 01/24/19 01/24/19 21:40 21:40 21:40 Creatine Kinase 60 CK-MB (CK-2) 0.60 Troponin I < 0.012 NT-Pro-B Natriuret Pep 01/25/19 23:25 Creatine Kinase CK-MB (CK-2) Troponin I NT-Pro-B Natriuret Pep 7710 H Impressions: Abdomen/Pelvis CT 01/25/19 00:26 IMPRESSION: Fluid overloaded state with pleural effusions, mild ascites as well as mild body wall anasarca. Head CT 01/25/19 00:26 IMPRESSION: No acute intracranial findings. Chest X-Ray 01/28/19 00:00 IMPRESSION: Small bilateral pleural effusions new from prior radiographs. Tibia/Fibula X-Ray 01/28/19 00:00 IMPRESSION: NEGATIVE STUDY OF THE RIGHT TIBIA AND FIBULA. NO RADIOGRAPHIC EVIDENCE OF ACUTE INJURY. Venous Doppler Study 01/30/19 00:00 IMPRESSION: NO EVIDENCE DVT OR SVT IN THE RIGHT LEG. Assessment and Plan - Diagnosis (1) Meningitis Is this a current diagnosis for this admission?: Yes Plan: with increased opening pressure, dexamethasone, vancomycin, Rocephin initiated, follow-up CSF studies and blood culture 01/[id number]-had[age]-old male admitted for altered mental status LP as [facility]. On p.o. dexamethasone, IV vancomycin IV Rocephin. On examination 10 minutes ago patient is alert awake oriented able to give his date of able to tell me that he was in [facility]. CSF stain negative for bacteria and WBC. Blood cultures are positive for gram-positive cocci in chains. Plan is to continue the present management. 01/28/2019 patient is presently on cefepime and vancomycin the CSF cultures came back negative. Meningitis is unlikely. Patient is alert awake oriented communicating very well. 01/29/2019-meningitis is ruled out. Patient is alert and awake oriented communicating well. Patient is presently on cefepime and vancomycin. The blood cultures from 01/24/2019 showing strep dysgalactiae plan is to continue the present antibiotic therapy. 01/30/2019-patient is admitted with altered mental status meningitis is in the differential LP was negative. Meningitis is ruled out. Until this morning he is on cefepime and vancomycin. T-max is 97.8. plan is to discontinue vancomycin today. 01/31/2019-patient was admitted with altered mental status, meningitis is in the high in the differential. Lumbar puncture came back negative. Meningitis is ruled out now. IV vancomycin is discontinued. Plan is to discontinue IV Rocephin today. 02/01/2019 meningitis is resolved. 02/02/2019-patient was admitted with altered mental status initially meningitis was high is in the differential lumbar puncture shows high opening pressures but the cultures came back negative. He completely recovered from meningitis. Alert and awake communicating very well. (2) Cellulitis of right leg Is this a current diagnosis for this admission?: Yes Plan: 01/25/2019-patient is admitted with right lower leg cellulitis he was started on IV Rocephin and IV vancomycin blood culture positive for gram-positive cocci in chains. Waiting for the sensitivity report. Plan is to continue the present management in the meantime. 01/28/2019-patient was admitted with cellulitis of the lower leg extremity presently on IV cefepime and IV vancomycin the cultures came back positive for strep dysGalantiae plan is to continue the present management. 01/29/2019-patient is admitted with right lower extremity resolved. Patient is presently on IV cefepime and IV vancomycin for blood cultures that was positive for strep dysgalantiae and is to continue the present management. 01/30/2019-patient is admitted with cellulitis of the lower extremity. Currently on IV vancomycin and cefepime vancomycin is discontinued this morning. pt is afebrile for the last 48 hours. Patient is complaining of right lower leg pain especially in the calf region we going to do the ultrasound to rule out DVT. 01/31/2019 right lower leg cellulitis is resolving. Patient received IV vancomycin and IV ceftriaxone. Both antibiotics are discontinued now. X-rays are negative for fractures ultrasound of the right lower extremity negative for DVT. Patient is still complaining of right lower leg pain he is presently on Percocet 1 tablet every 4 as needed and started on gabapentin 300 mg at night. Patient is waiting for placement. Physical therapy is working with the patient pain. Patient is afebrile for the last several days T-max is 99.1 yesterday. 02/01/2019 on examination today the right lower leg was swollen compared to the left leg increased erythema increased warmth on touch blood cultures are re quested patient started on IV vancomycin and IV clindamycin today. Discharge to [facility] is canceled. Recent x-rays of the lower right lower extremity and DVT studies are negative for acute changes. 2018-right lower leg is still swollen not warm to touch erythema and this excoriation of the skin is present. Blood cultures are negative so far presently on IV vancomycin and clindamycin plan is to continue the present antibiotic therapy hopefully physical therapist, will come today work with the patient. (3) Pleural effusion Is this a current diagnosis for this admission?: Yes Plan: 01/25/2019-patient was admitted with pleural effusion and a CT scan shows fluid overload with pleural effusions and mild ascites as well as mild body wall anasarca. Because of pleural effusion is unknown. Patient is hypotensive on pressors at this time. Patient is given the history of heavy alcohol use several years ago may be has liver failure with ascites and pleural effusions. 01/28/2019-initial CT scan shows fluid overload with pleural effusions and mild ascites as well as mild body wall anasarca. These findings are most likely secondary to liver failure. plan is to repeat the x-ray today. 01/29/2019 chest x-ray done yesterday shows small pleural effusions. His Lasix was started back on yesterday. Patient pulse ox is 95% on 2 L. Asymptomatic. Plan is to continue the present management. 01/30/2019-latest chest x-ray shows small pleural effusions patient is presently on Lasix 80 mg p.o. daily pulse ox is 95% on 3 L asymptomatic plan is to continue the present management. 01/31/2019-patient is presently on Lasix 80 mg p.o. daily pulse ox is 97% on room air x-ray shows small pleural effusions patient is asymptomatic. These effusions may be secondary to history of alcoholic liver cirrhosis. 02/01/2019-patient is presently on furosemide 80 mg p.o. daily and pulse oxes 95% on 2 L chest x-ray showing small bilateral pleural effusions most likely secondary to history of alcohol liver disease. Plan is to continue the present management. 02/02/2019-pulse ox on is 100% on 2 L chest x-ray showing small bilateral pleural effusions secondary to history of alcohol abuse resolving. Presently on furosemide 80 mg p.o. daily plan is to continue the present management. (4) Severe sepsis Is this a current diagnosis for this admission?: Yes Plan: Likely secondary to #1 or 2. IV fluid challenge, Levophed as needed 01/25/2019-patient was admitted severe sepsis with acute kidney injury baseline creatinine is 1.09 it was not 1.74. He is on IV pressors. Chest x-ray shows fluid overload with pleural effusions and ascites. Unable to give IV fluids because of the concerns about fluid overload worsening. Lactic acid on admission is 1.3. 01/28/2019 patient was admitted with septic shock was treated with IV antibiotics and IV fluids blood pressure today is 148/72 temperature 97.6, septic shock is resolved. Blood cultures are positive for strep dysgalactiae. 01/29/2019-patient is admitted with septic shock latest blood pressure is 110/61 he is back on his antihypertensive medications including Lasix patient is asymptomatic septic shock is resolved. 01/30/2019-patient is admitted with septic shock which was resolved, blood pressure today is 98/52 requested nurse to check the manual blood pressure. Patient is presently on cefepime and vancomycin n was discontinued this morning patient is afebrile for the last 72 hours. 01/31/2019 septic shock is resolved blood pressure today 116/54. stable. Septic shock is resolved. pt is off the antibiotics from today. Patient is presently on metoprolol 25 mg every 12 hours and furosemide 80 mg p.o. daily. Plan is to continue the present management. 02/01/2019-sepsis is resolved. 02/02/2019-patient was admitted with sepsis with hypotension altered mental status altered mental status was read resolved meningitis was ruled out. And right lower leg still swollen and hot to touch yesterday and erythematous he was started back on IV antibiotic therapy. Afebrile today. (5) Hyperkalemia Is this a current diagnosis for this admission?: Yes (6) Acute kidney failure Is this a current diagnosis for this admission?: Yes Plan: 01/25/2019-base line 1.08 ,,on admission it is 1.74 due to sepsis, may be due to prerenal causes. Plan is to closely monitor the creatinine levels. 01/28/2019 patient's baseline creatinine is around 1.09 today it is 1.55 acute k idney injury secondary to sepsis is resolving. Plan is to repeat the labs tomorrow. 01/29/2019-patient's baseline creatinine is around 1.09 yesterday it was 1.55 it was improved to 0.84 today acute kidney injury most likely due to prerenal causes resolved. 01/30/2019-patient's admission creatinine is 1.09 today it was 0.92 acute kidney injury due to prerenal causes resolved. 01/31/2019-patient's admission creatinine is 1.09 today it is 0.95 acute kidney injury most likely secondary to prerenal causes resolved. 02/01/2019-patient's admission creatinine is 1.74 his baseline creatinine is around 1.09 today's creatinine is 0.99 acute kidney injury due to ATN secondary to prerenal causes resolved. 01/05/2019 admission creatinine is 1.74, patient's baseline creatinine is around 1.09 today's creatinine is 0.9 acute kidney injury most likely secondary to ATN caused by sepsis is resolving. - Time Time Spent with patient: 15-24 minutes Medications reviewed and adjusted accordingly: Yes Anticipated discharge: [facility]
[2019-02-02] MEDS: FUROSEMIDE 80 MG TABLET PO SCH (09:52)
[2019-02-02] MEDS: CETIRIZINE 10 MG TABLET PO SCH (09:52)
[2019-02-02] MEDS: METOPROLOL TARTRATE 25 MG TABLET PO SCH ×2 (09:52→21:53)
[2019-02-02] MEDS: GLIPIZIDE 10 MG TABLET PO SCH ×2 (09:52→21:59)
[2019-02-02] MEDS: CYANOCOBALAMIN (VITAMIN B-12) INJ 1000 MCG/1 ML VIAL IM SCH (09:53)
[2019-02-02] MEDS: DONEPEZIL HCL 5 MG TABLET PO SCH ×2 (09:53→17:56)
[2019-02-02] MEDS ORDERED: VANCOMYCIN HCL INJ 1000 MG VIAL IV SCH (10:00)
[2019-02-02] MEDS: OXYCODONE-ACETAMINOPHEN 5-325 MG TABLET PO PRN (14:54)
[2019-02-02] MEDS: FOLIC ACID 1 MG in NORMAL SALINE 250 ML IV SCH (17:56)
[2019-02-02] MEDS: ERYTHROMYCIN 0.5% OPH OINTMENT 3.5 GM TUBE OU SCH (21:58)
[2019-02-02] MEDS: SERTRALINE HCL 50 MG TABLET PO SCH (21:58)
[2019-02-02] MEDS: GABAPENTIN 300 MG CAPSULE PO SCH (21:58)
[2019-02-03] MEDS: IPRATROPIUM/ALBUTEROL 0.5-2.5 MG/3 ML AMPUL NEB SCH ×4 (00:54→23:53)
[2019-02-03] MEDS: HEPARIN SOD (PORCINE) 5,000 UNIT/ML 1 ML SYRINGE SUBCUT SCH ×3 (05:27→22:57)
[2019-02-03] MEDS: CLINDAMYCIN 600 MG/D5W RTU 600 MG/50 ML RTUPB IV SCH ×3 (05:32→22:56)
[2019-02-03] MEDS: VANCOMYCIN HCL 750 MG in DEXTROSE 5%-WATER 250 ML IV SCH (06:00)
[2019-02-03 06:19] LABS: ABSOLUTE EOSINOPHILS # (AUTO) 0.2 10^3/uL (0.0-0.6); ABSOLUTE LYMPHOCYTES (AUTO) 0.4 10^3/uL (0.5-4.7); ABSOLUTE MONOCYTES (AUTO) 0.8 10^3/uL (0.1-1.4); BASOPHILS % (AUTO) 0.4 % (0-2); HEMATOCRIT 32.8 % (37.9-51.0); HEMOGLOBIN 11.4 g/dL (13.5-17.0); MEAN CORPUSCULAR HEMOGLOBIN 34.4 pg (27.0-33.4); MEAN CORPUSCULAR HGB CONC 34.6 g/dL (32.0-36.0); MEAN CORPUSCULAR VOLUME 99 fl (80-97); MONOCYTES % (AUTO) 10.5 % (3-13); PLATELET COUNT 131 10^3/uL (150-450); SEGMENTED NEUTROPHILS % (AUTO) 80.1 % (42-78); TOTAL CELLS COUNTED % (AUTO) 100 %; WHITE BLOOD COUNT 7.5 10^3/uL (4.0-10.5)
[2019-02-03 06:36] LABS: ALANINE AMINOTRANSFERASE 32 U/L (21-72); ALBUMIN 2.9 g/dL (3.5-5.0); ALKALINE PHOSPHATASE 152 U/L (38-126); ANION GAP 11 (5-19); ASPARTATE AMINO TRANSFERASE 49 U/L (17-59); BILIRUBIN,DIRECT 0.5 mg/dL (0.0-0.4); BILIRUBIN,TOTAL 0.9 mg/dL (0.2-1.3); BLOOD UREA NITROGEN 35 mg/dL (7-20); CALCIUM 8.5 mg/dL (8.4-10.2); CARBON DIOXIDE 25 mmol/L (22-30); CHLORIDE 97 mmol/L (98-107); GLUCOSE 70 mg/dL (75-110); POTASSIUM 4.3 mmol/L (3.6-5.0); SODIUM 132.5 mmol/L (137-145); TOTAL PROTEIN 6.2 g/dL (6.3-8.2)
[2019-02-03 06:38] LABS: VANCOMYCIN,TROUGH 9.9 ug/mL (5.0-20.0)
[2019-02-03] MEDS: MODAFINIL 100 MG TABLET PO SCH (07:45)
[2019-02-03] MEDS: INSULIN LISPRO 100 UNIT/ML 3 ML VIAL SUBCUT SCH ×4 (08:18→22:57)
--- NOTE | 2019-02-03 08:58 | PDOC PROGRESS REPORT ---
Subjective Progress Note for:: 02/03/19 Subjective:: 78 year old male with an extensive past medical history of COPD, congestive heart failure, coronary artery disease status post remote bypass grafting, hypertension and advanced dementia who requires assistance with feeding at baseline. He presents with his after the abrupt onset of vomiting of gastric contents x1, fever with altered mental status from baseline. Patient has chronic cellulitis of the right leg without antibiotics there are no new medications initiated patient is otherwise felt well in the emergency room is found to have septic shock with hypotension, fever, hyperkalemia chest x-ray revealing bilateral pleural effusion without infiltrate, LP reveals increased opening pressure, right leg is hot and erythemic with several open excoriations without exudate. He started on vancomycin, Rocephin and referred to the hospitalist for admission. denies recent rash or tick bite Patient verifies CODE STATUS is full code 01/25/2019-pt is comfortably in bed communicating well not in disress.still hypotensive on neonynephrine.denies any problems. 01/28/2019 patient is comfortably in the bed complaining of right lower leg pain on gentle palpation is jumped in pain we going to arrange for the x-ray of the right tibia and fibula. Patient is afebrile. No acute events in the last 24 hours. 01/29/2019 patient is comfortably in the bed complaining of back pain he has this chronic back pains he is using brace at home but he does not want any pain medications here I am going to order for the K pad for him. No acute events in the last 24 hours. X-ray of the right lower extremity came back negative for fractures. Patient's had a discussion with the social services designee she wanted her to go to a rehab facility her preferences [facility]. 01/30/2019-no acute events in the last 24 hours. Patient is afebrile. Compla ining of right lower leg pain especially in cough area. On gentle touch is jumping and pain. We going to do the DVT studies. To start him on Percocet 1 tablet every 4 hours as needed for pain. BP is 98/52 I requested the nurse to check the manual blood pressure. Patient's prefer to [facility] placement waiting for the bed availability. 01/31/2019-no acute events in the last 24 hours. Patient is afebrile. Patient is still complaining of right lower leg pain. He is getting Percocet 1 tablet every 4 as needed DVT studies are negative for blood clots and x-rays are negati ve for fractures. I am going to put him on gabapentin 300 mg at bedtime. Pulse ox is 98% -99% on room air. Patient was accepted [facility] waiting for the bed. 02/01/2019 discharge plans were made for the patient to go to [facility] today. But the is concerned about right lower leg swelling and redness she requested me to reexamine the patient. On examination right lower extremity was swollen compared to the left lower extremity and the erythema is present increased warmth is present so I requested for a blood cultures and started on IV vancomycin and clindamycin. Recent x-rays of the right lower extremity negative for fractures recent DVT studies are negative for blood clots. 02/02/2019-patient is complaining of pain in the lower extremity and moving. At rest he is denies any pain right lower leg is still swollen and erythematous. Blood cultures are negative so far. His temperature to 97.6 afebrile. WBC count is 10,500. Presently on IV vancomycin and mycin. 02/03/2019-patient is complaining of neck pain today. We could to do the CT neck today. Pain scale is 3-4 x 10. Constant. No acute events in the last 24 hours. Patient is afebrile. Reason For Visit: ACUTE ENCEPHALOPATHY, DEMENTIA, FEVER, HYPERKALEMI Physical Exam Vital Signs: Temp Pulse Resp BP Pulse Ox 98.7 F 72 16 102/50 L 91 L 02/03/19 08:10 02/03/19 08:10 02/03/19 08:10 02/03/19 08:10 02/03/19 08:10 Intake & Output 02/02/19 02/03/19 02/04/19 06:59 06:59 06:59 Intake Total 1211.2 1814.2 300 Output Total 1750 1776 Balance -538.8 38.2 300 Weight 91.2 kg 94.2 kg General appearance: PRESENT: no acute distress Head exam: PRESENT: atraumatic Eye exam: PRESENT: PERRLA Mouth exam: PRESENT: moist, tongue midline Teeth exam: PRESENT: poor dentation Neck exam: ABSENT: carotid bruit, JVD, lymphadenopathy, thyromegaly Respiratory exam: PRESENT: decreased breath sounds Cardiovascular exam: PRESENT: systolic murmur, tachycardia GI/Abdominal exam: PRESENT: normal bowel sounds, soft. ABSENT: distended, guarding, mass, organolmegaly, rebound, tenderness Extremities exam: PRESENT: full ROM, other - Right lower leg redness and erythema is improving.. ABSENT: calf tenderness, clubbing, pedal edema Neurological exam: PRESENT: alert, awake, oriented to person, oriented to place, oriented to time, oriented to situation, CN II-XII grossly intact. ABSENT: motor sensory deficit Psychiatric exam: PRESENT: appropriate affect, normal mood. ABSENT: homicidal ideation, suicidal ideation Results Laboratory Results: 02/03/19 05:45 02/03/19 05:45 02/03/19 02/03/19 02/03/19 05:45 05:45 05:45 WBC 7.5 RBC 3.30 L Hgb 11.4 L Hct 32.8 L MCV 99 H MCH 34.4 H MCHC 34.6 RDW 15.0 H Plt Count 131 L Seg Neutrophils % 80.1 H Lymphocytes % 6.0 L Monocytes % 10.5 Eosinophils % 3.0 Basophils % 0.4 Absolute Neutrophils 6.0 Absolute Lymphocytes 0.4 L Absolute Monocytes 0.8 Absolute Eosinophils 0.2 Absolute Basophils 0.0 Sodium 132.5 L Potassium 4.3 Chloride 97 L Carbon Dioxide 25 Anion Gap 11 BUN 35 H Creatinine 0.82 0.84 Est GFR ( Amer) > 60 > 60 Est GFR (Non-Af Amer) > 60 > 60 Glucose 70 L Calcium 8.5 Magnesium 2.0 Total Bilirubin 0.9 AST 49 ALT 32 Alkaline Phosphatase 152 H Total Protein 6.2 L Albumin 2.9 L 01/24/19 01/24/19 01/24/19 21:40 21:40 21:40 Creatine Kinase 60 CK-MB (CK-2) 0.60 Troponin I < 0.012 NT-Pro-B Natriuret Pep 01/25/19 23:25 Creatine Kinase CK-MB (CK-2) Troponin I NT-Pro-B Natriuret Pep 7710 H Impressions: Abdomen/Pelvis CT 01/25/19 00:26 IMPRESSION: Fluid overloaded state with pleural effusions, mild ascites as well as mild body wall anasarca. Head CT 01/25/19 00:26 IMPRESSION: No acute intracranial findings. Chest X-Ray 01/28/19 00:00 IMPRESSION: Small bilateral pleural effusions new from prior radiographs. Tibia/Fibula X-Ray 01/28/19 00:00 IMPRESSION: NEGATIVE STUDY OF THE RIGHT TIBIA AND FIBULA. NO RADIOGRAPHIC EVIDENCE OF ACUTE INJURY. Venous Doppler Study 01/30/19 00:00 IMPRESSION: NO EVIDENCE DVT OR SVT IN THE RIGHT LEG. Assessment and Plan - Diagnosis (1) Meningitis Is this a current diagnosis for this admission?: Yes Plan: with increased opening pressure, dexamethasone, vancomycin, Rocephin initiated, follow-up CSF studies and blood culture 01/[id number]-wfww-old male admitted for altered mental status LP as part of differential. On p.o. dexamethasone, IV vancomycin IV Rocephin. On examination 10 minutes ago patient is alert awake oriented able to give his date of able to tell me that he was in [facility]. CSF stain negative for bacteria and WBC. Blood cultures are positive for gram-positive cocci in chains. Plan is to continue the present management. 01/28/2019 patient is presently on cefepime and vancomycin the CSF cultures came back negative. Meningitis is unlikely. Patient is alert awake oriented communicating very well. 01/29/2019-meningitis is ruled out. Patient is alert and awake oriented communicating well. Patient is presently on cefepime and vancomycin. The blood cultures from 01/24/2019 showing strep dysgalactiae plan is to continue the present antibiotic therapy. 01/30/2019-patient is admitted with altered mental status meningitis is in the differential LP was negative. Meningitis is ruled out. Until this morning he is on cefepime and vancomycin. T-max is 97.8. plan is to discontinue vancomycin today. 01/31/2019-patient was admitted with altered mental status, meningitis is in the high in the differential. Lumbar puncture came back negative. Meningitis is ruled out now. IV vancomycin is discontinued. Plan is to discontinue IV Rocephin today. 02/01/2019 meningitis is resolved. 02/02/2019-patient was admitted with altered mental status initially meningitis was high is in the differential lumbar puncture shows high opening pressures but the cultures came back negative. He completely recovered from meningitis. Alert and awake communicating very well. 02/03/2019-meningitis is ruled out during this hospital stay. Lumbar puncture reports came back negative. (2) Cellulitis of right leg Is this a current diagnosis for this admission?: Yes Plan: 01/25/2019-patient is admitted with right lower leg cellulitis he was started on IV Rocephin and IV vancomycin blood culture positive for gram-positive cocci in chains. Waiting for the sensitivity report. Plan is to continue the present management in the meantime. 01/28/2019-patient was admitted with cellulitis of the lower leg extremity presently on IV cefepime and IV vancomycin the cultures came back positive for strep dysGalantiae plan is to continue the present management. 01/29/2019-patient is admitted with right lower extremity resolved. Patient is presently on IV cefepime and IV vancomycin for blood cultures that was positive for strep dysgalantiae and is to continue the present management. 01/30/2019-patient is admitted with cellulitis of the lower extremity. Currently on IV vancomycin and cefepime vancomycin is discontinued this morning. pt is afebrile for the last 48 hours. Patient is complaining of right lower leg pain especially in the calf region we going to do the ultrasound to rule out DVT. 01/31/2019 right lower leg cellulitis is resolving. Patient received IV vancomycin and IV ceftriaxone. Both antibiotics are discontinued now. X-rays are negative for fractures ultrasound of the right lower extremity negative for DVT. Patient is still complaining of right lower leg pain he is presently on Percocet 1 tablet every 4 as needed and started on gabapentin 300 mg at night. Patient is waiting for placement. Physical therapy is working with the patient pain. Patient is afebrile for the last several days T-max is 99.1 yesterday. 02/01/2019 on examination today the right lower leg was swollen compared to the left leg increased erythema increased warmth on touch blood cultures are requested patient started on IV vancomycin and IV clindamycin today. Discharge to [facility] is canceled. Recent x-rays of the lower right lower extremity and DVT studies are negative for acute changes. 02/02/2019-right lower leg is still swollen not warm to touch erythema and this excoriation of the skin is present. Blood cultures are negative so far presently on IV vancomycin and clindamycin plan is to continue the present antibiotic therapy hopefully physical therapist, will come today work with the patient. 02/03/2019-patient has right lower leg swelling with erythema recurred on Monday blood cultures are done negative so far started on IV vancomycin and clindamy abrahan. Patient is afebrile. T-max is 98.7. Denies any issues with the right lower leg today. Plan is to continue the antibiotic therapy reevaluate the patient tomorrow to see if he is stable enough to go to [facility]. (3) Pleural effusion Is this a current diagnosis for this admission?: Yes Plan: 01/25/2019-patient was admitted with pleural effusion and a CT scan shows fluid overload with pleural effusions and mild ascites as well as mild body wall anasarca. Because of pleural effusion is unknown. Patient is hypotensive on pressors at this time. Patient is given the history of heavy alcohol use several years ago may be has liver failure with ascites and pleural effusions. 01/28/2019-initial CT scan shows fluid overload with pleural effusions and mild ascites as well as mild body wall anasarca. These findings are most likely secondary to liver failure. plan is to repeat the x-ray today. 01/29/2019 chest x-ray done yesterday shows small pleural effusions. His Lasix was started back on yesterday. Patient pulse ox is 95% on 2 L. Asymptomatic. Plan is to continue the present management. 01/30/2019-latest chest x-ray shows small pleural effusions patient is presently on Lasix 80 mg p.o. daily pulse ox is 95% on 3 L asymptomatic plan is to continue the present management. 01/31/2019-patient is presently on Lasix 80 mg p.o. daily pulse ox is 97% on room air x-ray shows small pleural effusions patient is asymptomatic. These effusions may be secondary to history of alcoholic liver cirrhosis. 02/01/2019-patient is presently on furosemide 80 mg p.o. daily and pulse oxes 95% on 2 L chest x-ray showing small bilateral pleural effusions most likely secondary to history of alcohol liver disease. Plan is to continue the present management. 02/02/2019-pulse ox on is 100% on 2 L chest x-ray showing small bilateral pleural effusions secondary to history of alcohol abuse resolving. Presently on furos emide 80 mg p.o. daily plan is to continue the present management. 02/03/2019-patient's pulse ox is 91% on room air asymptomatic. Patient is presently on furosemide 80 mg p.o. daily, metoprolol 25 mg p.o. every 12 hours plan is to continue the present management. (4) Severe sepsis Is this a current diagnosis for this admission?: Yes Plan: Likely secondary to #1 or 2. IV fluid challenge, Levophed as needed 01/25/2019-patient was admitted severe sepsis with acute kidney injury baseline creatinine is 1.09 it was not 1.74. He is on IV pressors. Chest x-ray shows fluid overload with pleural effusions and ascites. Unable to give IV fluids because of the concerns about fluid overload worsening. Lactic acid on admission is 1.3. 01/28/2019 patient was admitted with septic shock was treated with IV antibiotics and IV fluids blood pressure today is 148/72 temperature 97.6, septic shock is resolved. Blood cultures are positive for strep dysgalactiae. 01/29/2019-patient is admitted with septic shock latest blood pressure is 110/61 he is back on his antihypertensive medications including Lasix patient is asymptomatic septic shock is resolved. 01/30/2019-patient is admitted with septic shock which was resolved, blood pressure today is 98/52 requested nurse to check the manual blood pressure. Patient is presently on cefepime and vancomycin n was discontinued this morning patient is afebrile for the last 72 hours. 01/31/2019 septic shock is resolved blood pressure today 116/54. stable. Septic shock is resolved. pt is off the antibiotics from today. Patient is presently on metoprolol 25 mg every 12 hours and furosemide 80 mg p.o. daily. Plan is to continue the present management. 02/01/2019-sepsis is resolved. 02/02/2019-patient was admitted with sepsis with hypotension altered mental status altered mental status was read resolved meningitis was ruled out. And right lower leg still swollen and hot to touch yesterday and erythematous he was started back on IV antibiotic therapy. Afebrile today. 02/03/2019-patient blood pressure today is 102/50 temperature of 98.7 respiratory of 16 pulse ox of 91% on room air sepsis was resolved. (5) Hyperkalemia Is this a current diagnosis for this admission?: Yes (6) Acute kidney failure Is this a current diagnosis for this admission?: Yes Plan: 01/25/2019-base line 1.08 ,,on admission it is 1.74 due to sepsis, may be due to prerenal causes. Plan is to closely monitor the creatinine levels. 01/28/2019 patient's baseline creatinine is around 1.09 today it is 1.55 acute kidney injury secondary to sepsis is resolving. Plan is to repeat the labs tomorrow. 01/29/2019-patient's baseline creatinine is around 1.09 yesterday it was 1.55 it was improved to 0.84 today acute kidney injury most likely due to prerenal causes resolved. 01/30/2019-patient's admission creatinine is 1.09 today it was 0.92 acute kidney injury due to prerenal causes resolved. 01/31/2019-patient's admission creatinine is 1.09 today it is 0.95 acute kidney injury most likely secondary to prerenal causes resolved. 02/01/2019-patient's admission creatinine is 1.74 his baseline creatinine is around 1.09 today's creatinine is 0.99 acute kidney injury due to ATN secondary to prerenal causes resolved. 02/02/2019 admission creatinine is 1.74, patient's baseline creatinine is around 1.09 today's creatinine is 0.9 acute kidney injury most likely secondary to ATN caused by sepsis is resolving. 02/03/2019-admission creatinine is 1.74, today's creatinine is 0.84 acute kidney injury most likely secondary to ATN caused by sepsis is resolved. - Time Time Spent with patient: 15-24 minutes Medications reviewed and adjusted accordingly: Yes Anticipated discharge: [facility]
[2019-02-03] MEDS: DONEPEZIL HCL 5 MG TABLET PO SCH ×2 (09:48→18:00)
[2019-02-03] MEDS: METOPROLOL TARTRATE 25 MG TABLET PO SCH ×2 (09:48→22:56)
[2019-02-03] MEDS: CETIRIZINE 10 MG TABLET PO SCH (09:48)
[2019-02-03] MEDS: FUROSEMIDE 80 MG TABLET PO SCH (09:48)
[2019-02-03] MEDS: GLIPIZIDE 10 MG TABLET PO SCH ×2 (09:48→22:56)
[2019-02-03] MEDS: CYANOCOBALAMIN (VITAMIN B-12) INJ 1000 MCG/1 ML VIAL IM SCH (09:49)
--- NOTE | 2019-02-03 11:34 | RADIOLOGY REPORT (SQ) ---
EXAM DESCRIPTION: CT CERVICAL SPINE WITHOUT COMPLETED DATE/TIME: 02/03/2019 10:51 am REASON FOR STUDY: neck pain COMPARISON: None. TECHNIQUE: Axial images acquired through the cervical spine without intravenous contrast. Images re viewed with lung, soft tissue and bone windows. Reconstructed coronal and sagittal MPR images review ed. Images stored on PACS. All CT scanners at this facility use dose modulation, iterative reconstruction, and/or weight based d osing when appropriate to reduce radiation dose to as low as reasonably achievable (ALARA). [facility]: Dose Right [facility]: CareDose [facility]: Dose Right [facility]: Teradose 4D [facility]: [employer] RADIATION DOSE: CT Rad equipment meets quality standard of care and radiation dose reduction techniq ues were employed. CTDIvol: 18.9 mGy. DLP: 361 mGy-cm. mGy. LIMITATIONS: None. FINDINGS: ALIGNMENT: Anatomic. MINERALIZATION: Normal. VERTEBRAL BODIES: No fractures or dislocation. DISCS: C5-6 significant disc space narrowing with small osteophytes and endplate irregularities. FACETS, LATERAL MASSES, POSTERIOR ELEMENTS: No fracture or worrisome bone lesion. Facet arthropathy looks most pronounced on the left at C2-3, C3-4, C4-5. HARDWARE: None in the spine. VISUALIZED RIBS: No fractures. LUNG APICES AND SOFT TISSUES: No pneumothorax. Bilateral incompletely assessed pleural effusions. OTHER: No other significant finding. IMPRESSION: 1. Cervical spondylosis. No fracture or worrisome bone lesion. Disc disease is most pronounced at C 5-6 with multilevel predominantly left-sided facet arthropathy above this. 2. Bilateral incompletely assessed small pleural effusions. TECHNICAL DOCUMENTATION: JOB ID: [id number] Quality ID # [id number]: Final reports with documentation of one or more dose reduction techniques (e.g., Au tomated exposure control, adjustment of the mA and/or kV according to patient size, use of iterative reconstruction technique) 2010 [employer]- All Rights Reserved Reading location - IP/workstation name: [email or web address]
[2019-02-03] MEDS: FOLIC ACID 1 MG in NORMAL SALINE 250 ML IV SCH (18:00)
[2019-02-03] MEDS: VANCOMYCIN HCL 1,000 MG in DEXTROSE 5%-WATER 250 ML IV SCH (18:04)
[2019-02-03] MEDS: GABAPENTIN 300 MG CAPSULE PO SCH (22:56)
[2019-02-03] MEDS: SERTRALINE HCL 50 MG TABLET PO SCH (22:56)
[2019-02-03] MEDS: ERYTHROMYCIN 0.5% OPH OINTMENT 3.5 GM TUBE OU SCH (23:00)
[2019-02-04 04:13] LABS: ABSOLUTE EOSINOPHILS # (AUTO) 0.2 10^3/uL (0.0-0.6); ABSOLUTE LYMPHOCYTES (AUTO) 0.4 10^3/uL (0.5-4.7); ABSOLUTE MONOCYTES (AUTO) 0.8 10^3/uL (0.1-1.4); ABSOLUTE NEUT (AUTO) 6.6 10^3/uL (1.7-8.2); BASOPHILS % (AUTO) 0.5 % (0-2); EOSINOPHILS % (AUTO) 2.4 % (0-6); HEMATOCRIT 34.7 % (37.9-51.0); LYMPHOCYTES % (AUTO) 5.5 % (13-45); MEAN CORPUSCULAR HEMOGLOBIN 34.4 pg (27.0-33.4); MEAN CORPUSCULAR HGB CONC 34.4 g/dL (32.0-36.0); MEAN CORPUSCULAR VOLUME 100 fl (80-97); MONOCYTES % (AUTO) 9.4 % (3-13); PLATELET COUNT 153 10^3/uL (150-450); RED BLOOD COUNT 3.48 10^6/uL (4.35-5.55); RED CELL DISTRIBUTION WIDTH 14.9 % (11.5-14.0); SEGMENTED NEUTROPHILS % (AUTO) 82.2 % (42-78); TOTAL CELLS COUNTED % (AUTO) 100 %
[2019-02-04 04:41] LABS: ALANINE AMINOTRANSFERASE 38 U/L (21-72); ALBUMIN 2.9 g/dL (3.5-5.0); ALKALINE PHOSPHATASE 215 U/L (38-126); ANION GAP 11 (5-19); ASPARTATE AMINO TRANSFERASE 73 U/L (17-59); BILIRUBIN,DIRECT 0.5 mg/dL (0.0-0.4); BLOOD UREA NITROGEN 30 mg/dL (7-20); CALCIUM 8.4 mg/dL (8.4-10.2); CARBON DIOXIDE 26 mmol/L (22-30); CHLORIDE 97 mmol/L (98-107); GLUCOSE 71 mg/dL (75-110); POTASSIUM 4.1 mmol/L (3.6-5.0); SODIUM 133.5 mmol/L (137-145); TOTAL PROTEIN 6.4 g/dL (6.3-8.2)
[2019-02-04] MEDS: HEPARIN SOD (PORCINE) 5,000 UNIT/ML 1 ML SYRINGE SUBCUT SCH ×2 (05:31→13:24)
[2019-02-04] MEDS: CLINDAMYCIN 600 MG/D5W RTU 600 MG/50 ML RTUPB IV SCH (05:37)
[2019-02-04] MEDS: VANCOMYCIN HCL 1,000 MG in DEXTROSE 5%-WATER 250 ML IV SCH (06:41)
[2019-02-04] MEDS: INSULIN LISPRO 100 UNIT/ML 3 ML VIAL SUBCUT SCH ×2 (08:39→11:56)
[2019-02-04] MEDS: IPRATROPIUM/ALBUTEROL 0.5-2.5 MG/3 ML AMPUL NEB SCH ×2 (08:44→15:35)
[2019-02-04] MEDS: MODAFINIL 100 MG TABLET PO SCH (08:47)
[2019-02-04] MEDS ORDERED: FOLIC ACID 1 MG TABLET PO SCH (10:00)
[2019-02-04] MEDS: METOPROLOL TARTRATE 25 MG TABLET PO SCH (10:07)
[2019-02-04] MEDS: FUROSEMIDE 80 MG TABLET PO SCH (10:07)
[2019-02-04] MEDS: CETIRIZINE 10 MG TABLET PO SCH (10:07)
[2019-02-04] MEDS: DONEPEZIL HCL 5 MG TABLET PO SCH (10:08)
[2019-02-04] MEDS: GLIPIZIDE 10 MG TABLET PO SCH (10:08)
[2019-02-04] MEDS: CYANOCOBALAMIN (VITAMIN B-12) INJ 1000 MCG/1 ML VIAL IM SCH (10:11)
[2019-02-04 11:49] VITALS: BP 122/51
--- NOTE | 2019-02-04 12:40 | PDOC TRANSFER SUMMARY ---
General - Admit/Disc Date/PCP Admission Date/Primary Care Provider: 01/25/19 03:[facility] Discharge Date: 02/04/19 - Discharge Diagnosis (1) Meningitis Is this a current diagnosis for this admission?: Yes Summary: with increased opening pressure, dexamethasone, vancomycin, Rocephin initiated, follow-up CSF studies and blood culture [id number]-[id number]-old male admitted for altered mental status LP as part of differential. On p.o. dexamethasone, IV vancomycin IV Rocephin. On examination 10 minutes ago patient is alert awake oriented able to give his date of able to tell me that he was in [facility]. CSF stain negative for bacteria and WBC. Blood cultures are positive for gram-positive cocci in chains. Plan is to continue the present management. 01/28/2019 patient is presently on cefepime and vancomycin the CSF cultures came back negative. Meningitis is unlikely. Patient is alert awake oriented communicating very well. 01/29/2019-meningitis is ruled out. Patient is alert and awake oriented communicating well. Patient is presently on cefepime and vancomycin. The blood cultures from 01/24/2019 showing strep dysgalactiae plan is to continue the present antibiotic therapy. 01/30/2019-patient is admitted with altered mental status meningitis is in the differential LP was negative. Meningitis is ruled out. Until this morning he is on cefepime and vancomycin. T-max is 97.8. plan is to discontinue vancomycin today. 01/31/2019-patient was admitted with altered mental status, meningitis is in the high in the differential. Lumbar puncture came back negative. Meningitis is ruled out now. IV vancomycin is discontinued. Plan is to discontinue IV Rocephin today. 02/01/2019 meningitis is resolved. 02/02/2019-patient was admitted with altered mental status initially meningitis was high is in the differential lumbar puncture shows high opening pressures but the cultures came back negative. He completely recovered from meningitis. Alert and awake communicating very well. 02/03/2019-meningitis is ruled out during this hospital stay. Lumbar puncture reports came back negative. 02/04/2019-patient came in with altered mental status and LP was done opening pressures are high initial thought was patient might have meningitis he was treated with empiric antibiotic therapy later on CSF cultures came back negative. Altered mental status resolved during the hospital stay. On examination today alert and awake oriented and communicating well. (2) Cellulitis of right leg Is this a current diagnosis for this admission?: Yes Summary: 01/25/2019-patient is admitted with right lower leg cellulitis he was started on IV Rocephin and IV vancomycin blood culture positive for gram-positive cocci in chains. Waiting for the sensitivity report. Plan is to continue the present management in the meantime. 01/28/2019-patient was admitted with cellulitis of the lower leg extremity presently on IV cefepime and IV vancomycin the cultures came back positive for strep dysGalantiae plan is to continue the present management. 01/29/2019-patient is admitted with right lower extremity resolved. Patient is presently on IV cefepime and IV vancomycin for blood cultures that was positive for strep dysgalantiae and is to continue the present management. 01/30/2019-patient is admitted with cellulitis of the lower extremity. Currently on IV vancomycin and cefepime vancomycin is discontinued this morning. pt is afebrile for the last 48 hours. Patient is complaining of right lower leg pain especially in the calf region we going to do the ultrasound to rule out DVT. 01/31/2019 right lower leg cellulitis is resolving. Patient received IV vancomycin and IV ceftriaxone. Both antibiotics are discontinued now. X-rays are negative for fractures ultrasound of the right lower extremity negative for DVT. Patient is still complaining of right lower leg pain he is presently on Percocet 1 tablet every 4 as needed and started on gabapentin 300 mg at night. Patient is waiting for placement. Physical therapy is working with the patient pain. Patient is afebrile for the last several days T-max is 99.1 yesterday. 02/01/2019 on examination today the right lower leg was swollen compared to the left leg increased erythema increased warmth on touch blood cultures are requested patient started on IV vancomycin and IV clindamycin today. Discharge to [facility] is canceled. Recent x-rays of the lower right lower extremity and DVT studies are negative for acute changes. 02/02/2019-right lower leg is still swollen not warm to touch erythema and this excoriation of the skin is present. Blood cultures are negative so far presently on IV vancomycin and clindamycin plan is to continue the present antibiotic therapy hopefully physical therapist, will come today work with the patient. 02/03/2019-patient has right lower leg swelling with erythema recurred on Monday blood cultures are done negative so far started on IV vancomycin and clindamycin. Patient is afebrile. T-max is 98.7. Denies any issues with the right lower leg today. Plan is to continue the antibiotic therapy reevaluate the patient tomorrow to see if he is stable enough to go to longterm. 02/04/2019-patient was admitted with right lower leg cellulitis and treated with IV vancomycin and IV Rocephin later on antibiotics discontinued he had again swelling or redness of the right lower leg treated with vancomycin and clindamycin blood cultures came back negative again and plan is to discharge the patient to longterm with levofloxacin 500 mg p.o. daily for 1 week. No complaints from the patient's today. (3) Pleural effusion Is this a current diagnosis for this admission?: Yes Summary: 01/25/2019-patient was admitted with pleural effusion and a CT scan shows fluid overload with pleural effusions and mild ascites as well as mild body wall anasarca. Because of pleural effusion is unknown. Patient is hypotensive on pressors at this time. Patient is given the history of heavy alcohol use several years ago may be has liver failure with ascites and pleural effusions. 01/28/2019-initial CT scan shows fluid overload with pleural effusions and mild ascites as well as mild body wall anasarca. These findings are most likely secondary to liver failure. plan is to repeat the x-ray today. 01/29/2019 chest x-ray done yesterday shows small pleural effusions. His Lasix was started back on yesterday. Patient pulse ox is 95% on 2 L. Asymptomatic. Plan is to continue the present management. 01/30/2019-latest chest x-ray shows small pleural effusions patient is presently on Lasix 80 mg p.o. daily pulse ox is 95% on 3 L asymptomatic plan is to continue the present management. 01/31/2019-patient is presently on Lasix 80 mg p.o. daily pulse ox is 97% on room air x-ray shows small pleural effusions patient is asymptomatic. These effusions may be secondary to history of alcoholic liver cirrhosis. 02/01/2019-patient is presently on furosemide 80 mg p.o. daily and pulse oxes 95% on 2 L chest x-ray showing small bilateral pleural effusions most likely secondary to history of alcohol liver disease. Plan is to continue the present management. 02/02/2019-pulse ox on is 100% on 2 L chest x-ray showing small bilateral pleural effusions secondary to history of alcohol abuse resolving. Presently on furosemide 80 mg p.o. daily plan is to continue the present management. 02/03/2019-patient's pulse ox is 91% on room air asymptomatic. Patient is presently on furosemide 80 mg p.o. daily, metoprolol 25 mg p.o. every 12 hours plan is to continue the present management. 02/04/2019-patient came in with bilateral pleural effusions most likely secondary to liver failure caused by a heavy alcohol use. He is on Lasix 80 mg p.o. daily plan is to continue the medication in the longterm. (4) Severe sepsis Is this a current diagnosis for this admission?: Yes Summary: Likely secondary to #1 or 2. IV fluid challenge, Levophed as needed 01/25/2019-patient was admitted severe sepsis with acute kidney injury baseline creatinine is 1.09 it was not 1.74. He is on IV pressors. Chest x-ray shows fluid overload with pleural effusions and ascites. Unable to give IV fluids because of the concerns about fluid overload worsening. Lactic acid on admission is 1.3. 01/28/2019 patient was admitted with septic shock was treated with IV antibiotics and IV fluids blood pressure today is 148/72 temperature 97.6, septic shock is resolved. Blood cultures are positive for strep dysgalactiae. 01/29/2019-patient is admitted with septic shock latest blood pressure is 110/61 he is back on his antihypertensive medications including Lasix patient is asymptomatic septic shock is resolved. 01/30/2019-patient is admitted with septic shock which was resolved, blood pressure today is 98/52 requested nurse to check the manual blood pressure. Patient is presently on cefepime and vancomycin n was discontinued this morning patient is afebrile for the last 72 hours. 01/31/2019 septic shock is resolved blood pressure today 116/54. stable. Septic shock is resolved. pt is off the antibiotics from today. Patient is presently on metoprolol 25 mg every 12 hours and furosemide 80 mg p.o. daily. Plan is to continue the present management. 02/01/2019-sepsis is resolved. 02/02/2019-patient was admitted with sepsis with hypotension altered mental status altered mental status was read resolved meningitis was ruled out. And right lower leg still swollen and hot to touch yesterday and erythematous he was started back on IV antibiotic therapy. Afebrile today. 02/03/2019-patient blood pressure today is 102/50 temperature of 98.7 respiratory of 16 pulse ox of 91% on room air sepsis was resolved. 02/04/2019-patient blood pressure today is 134/57 with a temperature of 98.2 afebrile for the last several days blood cultures are negative sepsis is resolved. (5) Hyperkalemia Is this a current diagnosis for this admission?: Yes Summary: 02/04/2019-patient potassium level today is 4.1. Hyperkalemia that was diagnosed at the time of admission is resolved. (6) Acute kidney failure Is this a current diagnosis for this admission?: Yes Summary: 01/25/2019-base line 1.08 ,,on admission it is 1.74 due to sepsis, may be due to prerenal causes. Plan is to closely monitor the creatinine levels. 01/28/2019 patient's baseline creatinine is around 1.09 today it is 1.55 acute kidney injury secondary to sepsis is resolving. Plan is to repeat the labs tomorrow. 01/29/2019-patient's baseline creatinine is around 1.09 yesterday it was 1.55 it was improved to 0.84 today acute kidney injury most likely due to prerenal causes resolved. 01/30/2019-patient's admission creatinine is 1.09 today it was 0.92 acute kidney injury due to prerenal causes resolved. 01/31/2019-patient's admission creatinine is 1.09 today it is 0.95 acute kidney injury most likely secondary to prerenal causes resolved. 02/01/2019-patient's admission creatinine is 1.74 his baseline creatinine is around 1.09 today's creatinine is 0.99 acute kidney injury due to ATN secondary to prerenal causes resolved. 02/02/2019 admission creatinine is 1.74, patient's baseline creatinine is around 1.09 today's creatinine is 0.9 acute kidney injury most likely secondary to ATN caused by sepsis is resolving. 02/03/2019-admission creatinine is 1.74, today's creatinine is 0.84 acute kidney injury most likely secondary to ATN caused by sepsis is resolved. 02/04/2019 patient's admission creatinine is 1.74 and it is today 0.77 acute kidney injury due to ATN caused by sepsis/prerenal causes resolved. - Additional Information Resuscitation Status: Full Code Discharge Diet: Diabetic Discharge Activity: Activity As Tolerated Prescriptions: Levofloxacin [Levaquin 500 mg Tablet] 500 mg PO DAILY #10 tablet Oxycodone HCl/Acetaminophen [Percocet 5-325 mg Tablet] 1 tab PO Q4HP PRN #15 tablet PRN Reason: Home Medications: Albuterol Sulfate [Proair HFA Inhalation Aerosol 8.5 gm MDI] 2 puff IH Q4HP PRN 01/25/19 Cetirizine HCl [Zyrtec 10 mg Tablet] 10 mg PO DAILY 01/25/19 Cyanocobalamin (Vitamin B-12) [Vitamin B-12 1000 mcg Tablet] 1,000 mcg PO QAM 01/25/19 Donepezil HCl [Aricept] 10 mg PO BID 01/25/19 Erythromycin Base [E-Mycin 0.5% Oph Oint 1 gm Unit Dose] 1 applic OU QHS 01/25/19 Furosemide [Lasix 40 mg Tablet] 80 mg PO DAILY 01/25/19 Glipizide [Glucotrol 10 mg Tablet] 10 mg PO Q12 01/25/19 Melatonin [Melatonin 5 mg Tablet] 10 mg PO HSP PRN 01/25/19 Metformin HCl [Glucophage 500 mg Tablet] 500 mg PO Q12 01/25/19 Metoprolol Tartrate [Lopressor 25 mg Tablet] 25 mg PO Q12 01/25/19 Modafinil [Provigil 100 mg Tablet] 50 mg PO QAM 01/25/19 Potassium Chloride [Klor-Con 10 Meq Capsule ER] 40 meq PO QAM 01/25/19 Sertraline HCl [Zoloft] 200 mg PO DAILY 01/25/19 Flu Vacc [id number](6Mos Up)/Pf [Fluarix Adlt Quad Vac 0.5 ml Syr] 0.5 ml IM .DISCHARGE PRN syringe 02/01/19 Gabapentin [Neurontin 300 mg Capsule] 300 mg PO QHS capsule 02/01/19 Insulin Lispro [Humalog Insulin (Lispro) 100 unit/mL] 0 - 12 unit SUBCUT ACHS unit 02/01/19 Ipratropium/Albuterol Sulfate [Duoneb 3 ml Ampul] 3 ml NEB RTQ8 vial.neb 02/01/19 Oxycodone HCl/Acetaminophen [Percocet 5-325 mg Tablet] 1 tab PO Q4HP PRN #15 tablet 02/01/19 Levofloxacin [Levaquin 500 mg Tablet] 500 mg PO DAILY #10 tablet 02/04/19 History of Present Illness Admission Date/PCP: 01/25/19 03:34 [facility] History of Present Illness: BELINDA BRITO is a 78 year old male 78 year old male with an extensive past medical history of COPD, congestive heart failure, coronary artery disease status post remote bypass grafting, hypertension and advanced dementia who requires assistance with feeding at base line. He presents with his after the abrupt onset of vomiting of gastric contents x1, fever with altered mental status from baseline. Patient has chronic cellulitis of the right leg without antibiotics there are no new medications initiated patient is otherwise felt well in the emergency room is found to have septic shock with hypotension, fever, hyperkalemia chest x-ray revealing bilateral pleural effusion without infiltrate, LP reveals increased opening pressure, right leg is hot and erythemic with several open excoriations without exudate. He started on vancomycin, Rocephin and referred to the hospitalist for admission. denies recent rash or tick bite Patient verifies CODE STATUS is full code Physical Exam Vital Signs: Temp Pulse Resp BP Pulse Ox 97.4 F 67 15 122/51 L 93 02/04/19 11:45 02/04/19 11:45 02/04/19 11:45 02/04/19 11:45 02/04/19 11:45 Intake & Output 02/03/19 02/04/19 02/05/19 06:59 06:59 06:59 Intake Total 1814.2 1758.2 487 Output Total 1776 3100 450 Balance 38.2 -1341.8 37 Weight 94.2 kg 89.9 kg General appearance: PRESENT: no acute distress Head exam: PRESENT: atraumatic Eye exam: PRESENT: PERRLA Respiratory exam: PRESENT: decreased breath sounds Cardiovascular exam: PRESENT: tachycardia GI/Abdominal exam: PRESENT: normal bowel sounds, soft. ABSENT: distended, guarding, mass, organolmegaly, rebound, tenderness Extremities exam: PRESENT: full ROM. ABSENT: calf tenderness, clubbing, pedal edema Neurological exam: PRESENT: alert, awake, oriented to person, oriented to place, oriented to time, oriented to situation, CN II-XII grossly intact. ABSENT: motor sensory deficit Psychiatric exam: PRESENT: appropriate affect, normal mood. ABSENT: homicidal ideation, suicidal ideation Results Laboratory Results: 02/04/19 03:44 02/04/19 03:44 02/04/19 02/04/19 03:44 03:44 WBC 8.0 RBC 3.48 L Hgb 12.0 L Hct 34.7 L MCV 100 H MCH 34.4 H MCHC 34.4 RDW 14.9 H Plt Count 153 Seg Neutrophils % 82.2 H Lymphocytes % 5.5 L Monocytes % 9.4 Eosinophils % 2.4 Basophils % 0.5 Absolute Neutrophils 6.6 Absolute Lymphocytes 0.4 L Absolute Monocytes 0.8 Absolute Eosinophils 0.2 Absolute Basophils 0.0 Sodium 133.5 L Potassium 4.1 Chloride 97 L Carbon Dioxide 26 Anion Gap 11 BUN 30 H Creatinine 0.77 Est GFR ( Amer) > 60 Est GFR (Non-Af Amer) > 60 Glucose 71 L Calcium 8.4 Magnesium 2.1 Total Bilirubin 1.0 AST 73 H ALT 38 Alkaline Phosphatase 215 H Total Protein 6.4 Albumin 2.9 L 01/24/19 01/24/19 01/24/19 21:40 21:40 21:40 Creatine Kinase 60 CK-MB (CK-2) 0.60 Troponin I < 0.012 NT-Pro-B Natriuret Pep 01/25/19 23:25 Creatine Kinase CK-MB (CK-2) Troponin I NT-Pro-B Natriuret Pep 7710 H Impressions: Abdomen/Pelvis CT 01/25/19 00:26 IMPRESSION: Fluid overloaded state with pleural effusions, mild ascites as well as mild body wall anasarca. Head CT 01/25/19 00:26 IMPRESSION: No acute intracranial findings. Chest X-Ray 01/28/19 00:00 IMPRESSION: Small bilateral pleural effusions new from prior radiographs. Tibia/Fibula X-Ray 01/28/19 00:00 IMPRESSION: NEGATIVE STUDY OF THE RIGHT TIBIA AND FIBULA. NO RADIOGRAPHIC EVIDENCE OF ACUTE INJURY. Venous Doppler Study 01/30/19 00:00 IMPRESSION: NO EVIDENCE DVT OR SVT IN THE RIGHT LEG. Cervical Spine CT 02/03/19 00:00 IMPRESSION: 1. Cervical spondylosis. No fracture or worrisome bone lesion. Disc disease is most pronounced at C5-6 with multilevel predominantly left-sided facet arthropathy above this. 2. Bilateral incompletely assessed small pleural effusions. Transfer Plan - Time Spent with Patient Time spent with patient: Greater than 30 Minutes Qualifiers - * PATIENT BEING DISCHARGED WITH ANY OF THE FOLLOWING DIAGNOSIS: No VTE patient discharged on overlapping Therapy?: No
== END 2019-02-04 17:14 | DRG 871 ==
LOC: ER 19:01 → EH 01-25 03:34 → ICU 01-25 10:49 → 3N 01-27 16:20
PROVIDERS: ADMIT Internal Medicine; ATTEND Internal Medicine
PROC: 5A09357 Assistance with Respiratory Ventilation, Less than 24 Consecutive Hours, Continuous Positive Airway Pressure (ICD-10-PCS; principal; 2019-01-25)
PROC: 3E0F73Z Introduction of Anti-inflammatory into Respiratory Tract, Via Natural or Artificial Opening (ICD-10-PCS; 2019-01-25)
PROC: 009U3ZX Drainage of Spinal Canal, Percutaneous Approach, Diagnostic (ICD-10-PCS; 2019-01-25)
DX: A40.8 Other streptococcal sepsis (principal); R65.21 Severe sepsis with septic shock; N17.0 Acute kidney failure with tubular necrosis; L03.115 Cellulitis of right lower limb; R18.8 Other ascites; F03.90 Unspecified dementia, unspecified severity, without behavioral disturbance, psychotic disturbance, mood disturbance, and anxiety; E87.5 Hyperkalemia; J44.9 Chronic obstructive pulmonary disease, unspecified; I25.10 Atherosclerotic heart disease of native coronary artery without angina pectoris; N18.3 Chronic kidney disease, stage 3 (moderate); F17.220 Nicotine dependence, chewing tobacco, uncomplicated; I12.9 Hypertensive chronic kidney disease with stage 1 through stage 4 chronic kidney disease, or unspecified chronic kidney disease; I44.7 Left bundle-branch block, unspecified; Z79.899 Other long term (current) drug therapy; Z79.4 Long term (current) use of insulin; Z95.1 Presence of aortocoronary bypass graft; Z95.3 Presence of xenogenic heart valve; Z83.3 Family history of diabetes mellitus; Z82.49 Family history of ischemic heart disease and other diseases of the circulatory system
CPT/HCPCS: 36415; 70450; 71045; 71046; 72125; 74177; 80053; 80202; 80307; 81001; 82550; 82553; 82565; 82607; 82728; 82746; 82945; 82962; 83036; 83540; 83550; 83605; 83690; 83735; 83880; 84157; 84439; 84443; 84484; 85025; 85045; 85379; 85610; 85730; 87040; 87070; 87077; 87186; 87205; 87529; 87804; 89050; 93005; 93010; 93971; 94640; 96361; 96365; 99291; J0696; J1100; J1644; J1815; J2370; J3370; J3420; J3490; J7030; J7050; J7060; J7620